=== PATIENT | male | born 1970 | race Caucasian/White ===

== ENCOUNTER → 2021-07-21 14:33 | Outpatient (REF) | payer OTHER, MEDICARE, SELFPAY | LOC: ANHLAB 14:33 | PROVIDERS: PCP Physician Assistant; Visit Provider Nurse Practitioner | DX: C44.01 Basal cell carcinoma of skin of lip (principal); D22.5 Melanocytic nevi of trunk | CPT/HCPCS: 88305 ==

== ENCOUNTER 2021-09-30 09:35 | Outpatient (CLI) | payer MEDICARE, SELFPAY ==
--- NOTE | 2021-09-30 10:03 | ECHO_ITS ---
Patient Info Name: Ge Isabel Age: 51 years : 1970 Gender: Male Ht: 73 in Wt: 205 lbs BSA: 2.20 m2 HR: 54 bpm BP: 87 / 64 mmHg Heart Rhythm: Sinus Rhythm Exam Date: 09/30/2021 10:22 AM Exam Location: [facility] Pulmonary Patient Status: Outpatient Admit Date: 09/30/2021 Staff Ordering Physician: Carroll Dunn PA-C Business Dean: Vadim Orosco RDCS, RT Attending Provider: Carroll Dunn PA-C Referring Physician: Mona CANO; Exam Type: CA echo doppler color flow Study Info Complete two-dimensional, color flow and Doppler transthoracic echocardiogram is performed. Summary 1. Technically difficult study with limited views. Regional wall motion assessment limited due to poor endomyocardial border definition. 2. Left ventricular systolic function is normal, estimated at 55-60%. 3. There is mildly increased left ventricular wall thickness. 4. Left ventricular septal wall motion is abnormal with septal motion related to bundle branch block. 5. The left ventricular diastolic function is grade I diastolic dysfunction. 6. There is no aortic valve stenosis. 7. There is trace mitral valve regurgitation. 8. Unable to estimate PA systolic pressure due to poor spectral resolution of tricuspid regurgitant jet velocity. Left Ventricle Technically difficult study with limited views. Regional wall motion assessment limited due to poor endomyocardial border definition. Left ventricular chamber dimension is normal. Left ventricular systolic function is normal, estimated at 55-60%. There is mildly increased left ventricular wall thickness. Left ventricular septal wall motion is abnormal with septal motion related to bundle branch block. The left ventricular diastolic function is grade I diastolic dysfunction. Right Ventricle Right ventricular chamber dimension is normal. Right ventricular systolic function is normal. Left Atria Left atrial chamber dimension is normal. Right Atria Right atrial chamber dimension is normal. Aortic Valve The aortic valve is not well visualized. There is no aortic valve stenosis. There is no aortic valve regurgitation. Pulmonic Valve The pulmonic valve is not well visualized. Mitral Valve The mitral valve has normal leaflets. There is trace mitral valve regurgitation. Tricuspid Valve The tricuspid valve leaflets are not well visualized. Unable to estimate PA systolic pressure due to poor spectral resolution of tricuspid regurgitant jet velocity. Pericardium/Pleural The pericardium appears epicardial fat pad. There is trivial pericardial effusion. Inferior Vena Cava Normal inferior vena cava with <50% collapse upon inspiration consistent with elevated right atrial pressure, 10 mmHg. Aorta The aortic root size at the sinus of Valsalva is normal. Left Ventricular Outflow Tract Name Value Normal LVOT 2D LVOT Diameter 2.0 cm LVOT Doppler LVOT Peak Gradient 1 mmHg LVOT Mean Gradient 1 mmHg LVOT VTI 13 cm LVOT VTI/AV VTI Ratio 0.[address]
== END 2021-09-30 09:36 | disposition home or self-care (01) ==
PROVIDERS: PCP Family Medicine; Visit Provider Physician Assistant
DX: I95.9 Hypotension, unspecified (principal); Z79.899 Other long term (current) drug therapy; R93.1 Abnormal findings on diagnostic imaging of heart and coronary circulation; I44.7 Left bundle-branch block, unspecified
CPT/HCPCS: 93306

== ENCOUNTER 2021-11-10 01:18 | Day surgery (SDC) | payer MEDICARE, SELFPAY ==
[2021-11-02 11:20] VITALS: BMI 26.7
[2021-11-10 11:33] VITALS: BP 91/54; PULSE 82; RESP 16; TEMP 36.6; O2SAT 99
--- NOTE | 2021-11-10 11:42 | WPDGICN ---
Assessment and Plan Assessment and plan (1) Encounter for screening colonoscopy: Code(s): Z12.11 - Encounter for screening for malignant neoplasm of colon Status: Acute Assessment and Plan: Colonoscopy to be performed today. Appears to be at average risk for colon polyps. (2) Spinal cord injury: Status: Acute (3) Quadriplegia: Code(s): G82.50 - Quadriplegia, unspecified Status: Acute GI Consult Note Consult date/time: 11/10/21 11:42 HPI: Ge Isabel is a 51 year old male Presents for neoplasia screening. Patient's current weight appetite and bowel movements are normal. He denies abdominal pain. He has a history of quadriplegia for at least 30 years. Has an established bowel regime that keeps him regular. Recently has noticed a small bright bright red blood per rectum with hard bowel movements. Patient presents today for screening colonoscopy. Family history is significant grandmother had colon cancer. There are no first-degree relatives with bowel disease that he is aware of. Review of Systems Review of Systems: All systems reviewed & are unremarkable except as noted in HPI and below PMFSH Family History Family History Mother Hypertension Father Hypertension Cerebrovascular accident, Onset Age: 57 Grandparent Carcinoma of colon, Onset Age: 80 Social History Social History Smoking status: Never smoker Alcohol intake: current Substance use: never Substance use type: does not use Living arrangements: with family Additional living arrangements comments: EXTERNAL CATHETER WITH LEG BAG Spiritual care concerns: No Meds Home Medications and Allergies Home Medications Medication Instructions Recorded Confirmed Type diazepam 5 mg tablet 5 mg PO BID #180 tablet 03/26/21 11/02/21 Rx nitrofurantoin 100 mg PO DAILY PRN #30 cap 03/26/21 11/02/21 Rx monohydrate/macrocrystals 100 mg capsule baclofen 20 mg tablet 20 mg PO QID #360 tablet 08/04/21 11/02/21 Rx tamsulosin 0.4 mg capsule 0.4 mg PO DAILY #90 cap 08/04/21 11/02/21 Rx ascorbic acid (vitamin C) 500 mg PO DAILY 11/02/21 11/02/21 History docusate sodium [Dulcolax Stool 100 mg PO QID 11/02/21 11/02/21 History Softener (dss)] Allergies Allergy/AdvReac Type Severity Reaction Status Date / Time latex Allergy Intermediate penis Verified 11/10/21 11:32 Vital Signs Vital Signs - 24 hr 11/10/21 11:33 Temperature 97.8 F Pulse Rate 82 Respiratory Rate 16 Blood Pressure 91/54 L Pulse Oximetry 99 Exam Narrative: Physical exam reveals patient to be alert. Vital signs stable. HEENT exam is unremarkable. Patient is anicteric. Lungs are clear to auscultation and percussion. Heart is without murmur or extra sounds. Abdominal exam bowel sounds present soft nontender with no organomegaly. Digital external rectal exam is normal. Extremities reveal E has paralysis below the nipples.
[2021-11-10] MEDS: LACTATED RINGERS 1,000 ML 150 ML IV CONT (11:43)
--- NOTE | 2021-11-10 12:18 | WPDANESEPPF ---
Anes - Initial Pre Proc Eval Procedure: Operation Date: 11/10/21 12:30 Proposed Procedures p Screening Colonoscopy - Ariel Cotton MD Date/Time: 11/10/21 12:18 Surgeon: Ariel Cotton MD Pre Op Diagnosis: neoplasm screening Patient Data Age: 51 Gender: M Height: 1.85 m Weight: 92 kg Last Vital Signs Temp 97.8 F 11/10/21 11:33 Pulse 82 11/10/21 11:33 Resp 16 11/10/21 11:33 BP 91/54 L 11/10/21 11:33 Pulse Ox 99 11/10/21 11:33 Allergies Allergy/AdvReac Type Severity Reaction Status Date / Time latex Allergy Intermediate penis Verified 11/10/21 11:32 Home Medications Medication Instructions Recorded Confirmed Type diazepam 5 mg tablet 5 mg PO BID #180 tablet 03/26/21 11/02/21 Rx nitrofurantoin 100 mg PO DAILY PRN #30 cap 03/26/21 11/02/21 Rx monohydrate/macrocrystals 100 mg capsule baclofen 20 mg tablet 20 mg PO QID #360 tablet 08/04/21 11/02/21 Rx tamsulosin 0.4 mg capsule 0.4 mg PO DAILY #90 cap 08/04/21 11/02/21 Rx ascorbic acid (vitamin C) 500 mg PO DAILY 11/02/21 11/02/21 History docusate sodium [Dulcolax Stool 100 mg PO QID 11/02/21 11/02/21 History Softener (dss)] Patient hx anesthesia problems: none Family hx anesthesia problems: none Results Review: All pre-operative results and documents have been reviewed as part of the pre-operative evaluation. [facility] Past Medical History Medical History (Updated 11/10/21 @ 12:18 by Ranulfo Plata MD) Hypotension Quadriplegia Spinal cord injury Family History Family History Mother Hypertension Father Hypertension Cerebrovascular accident, Onset Age: 57 Grandparent Carcinoma of colon, Onset Age: 80 Social History Social History Smoking status: Never smoker Alcohol intake: current Substance use: never Substance use type: does not use Living arrangements: with family Additional living arrangements comments: EXTERNAL CATHETER WITH LEG BAG Spiritual care concerns: No Anes - Eval Final PreProcedure Day of Procedure 11/10/21 12:18 Patient weight: normal Heart: regular rate and rhythm Lungs: clear to auscultation Airway: Mallampati scale class II Neurological: alert and oriented Last oral intake: >/= 8 hours ASA classification: III Emergent: no Anesthetic plan: proceed Anesthesia type and monitoring: general GIVS and standard monitoring Results Review: All pre-operative results and documents have been reviewed as part of the pre-operative evaluation. Informed Consent: The patient's anesthetic plan and its attendant risks and benefits were discussed with the patient/family/POA. Questions were solicited and answers provided to the satisfaction of the patient/family/POA.
[2021-11-10 12:58] VITALS: BP 107/67; PULSE 73; RESP 32; O2SAT 96
[2021-11-10 13:08] VITALS: BP 101/72; PULSE 62; RESP 21; O2SAT 98
[2021-11-10 13:18] VITALS: BP 108/75; PULSE 63; RESP 20; O2SAT 97
== END 2021-11-10 13:26 | disposition home or self-care (01) ==
PROVIDERS: PCP Family Medicine; Visit Provider Internal Medicine Gastroenterology
PROC: 0DJD8ZZ Inspection of Lower Intestinal Tract, Via Natural or Artificial Opening Endoscopic (ICD-10-PCS; CPT 45378; principal; 2021-11-10 12:30)
DX: Z12.11 Encounter for screening for malignant neoplasm of colon (principal); D12.3 Benign neoplasm of transverse colon; K62.1 Rectal polyp; G82.50 Quadriplegia, unspecified; T14.8XXS Other injury of unspecified body region, sequela; K64.8 Other hemorrhoids
CPT/HCPCS: 45385; 88305; J2704; J7120

== ENCOUNTER 2022-08-19 14:54 | Outpatient (NON) | payer BC, MEDICARE, SELFPAY | END 2022-08-19 14:55 | disposition home or self-care (01) | PROVIDERS: PCP Family Medicine; Visit Provider Nurse Practitioner | DX: L73.8 Other specified follicular disorders (principal); L90.5 Scar conditions and fibrosis of skin | CPT/HCPCS: 88305 ==

== ENCOUNTER 2023-07-13 11:18 | Outpatient (CLI) | payer BC, MEDICARE, SELFPAY ==
[2023-07-13 14:19] LABS: Basophils Percent Auto 0.4 % (0.2-1.2); Eosinophils Absolute Auto 0.2 K/mm3 (0-0.3); Eosinophils Percent Auto 2.2 % (0-4.4); Hematocrit 42.1 % (42.0-52.0); Hemoglobin 13.4 g/dL (14.0-18.0); Immature Granulocyte Absolute 0.04 K/mm3 (0.00-0.031); Immature Granulocyte Percent A 0.5 % (0-0.5); Lymphocytes Absolute Auto 1.38 K/mm3 (0.9-3.2); Lymphocytes Percent Auto 17.6 % (18.3-44.2); Mean Corpuscular HGB Conc 31.8 g/dl (32-36); Mean Corpuscular Volume 91.1 fl (80-100); Mean Platelet Volume 9.8 fl (7.4-10.4); Monocytes Absolute Auto 0.5 K/mm3 (0.1-0.6); Monocytes Percent Auto 5.9 % (2.6-8.5); Neutrophils Absolute Auto 5.8 K/mm3 (1.3-6.7); Neutrophils Percent Auto 73.4 % (45.5-73.1); Platelet Count Result 282 k/mm3 (150-375); Red Blood Count 4.62 M/mm3 (4.6-6.20); Red Cell Distribution Width 13.4 % (11.5-14.5); White Blood Count 7.8 K/mm3 (4.5-10.0)
== END 2023-07-13 11:19 | disposition home or self-care (01) ==
PROVIDERS: PCP Family Medicine; Visit Provider Family Medicine
DX: Z00.00 Encounter for general adult medical examination without abnormal findings (principal); Z99.3 Dependence on wheelchair
CPT/HCPCS: 36415; 85025

== ENCOUNTER 2023-10-27 06:42 | Inpatient (IN) | payer BC, MEDICARE, SELFPAY ==
[2023-10-27] VITALS (19 sets, daily range): BP systolic 74–161; BP diastolic 45–146; PULSE 75–127; RESP 12–24; TEMP 36.8–39; O2SAT 18–100; BMI 25.6
--- NOTE | ~2023-10-27 | XR_ITS ---
Supine and upright views of the abdomen Clinical history: Left ureteral stone Findings: Bowel gas pattern is nonspecific. No evidence for obstruction or free air. Or left ureteral stent in place. Left lower pole renal stones measure up to 12 mm. No definite ureteral stones seen o n this exam. Osseous structures are intact. Impression: Left ureteral stent in place with left lower pole renal stones. No definite ureteral stone evident. Reviewed, dictated and finalized at [facility]. Impression: Left ureteral stent in place with left lower pole renal stones. No definite ure teral stone evident.
--- NOTE | ~2023-10-27 | XR_ITS ---
EXAMINATION: XR retrograde pyelo w/stent LT DATE: 10/27/2023 15:47 INDICATION: Left internal ureteral stent placement TECHNIQUE: Fluoroscopic images from a left internal ureteral stent placement are submitted for review . 23 seconds of fluoroscopy time. 11 fluoroscopic images. FINDINGS: There is a left double-J internal ureteral stent projecting in expected position, with proximal [place] loop at the level of the renal pelvis and distal loop in the pelvis within the bladder lumen. IMPRESSION: 1. Left internal ureteral stent placement. Please refer to real-time procedural findings for detail s. Reviewed, dictated and finalized at location A. IMPRESSION: 1. Left internal ureteral stent placement. Please refer to real-time procedur al findings for details.
--- NOTE | ~2023-10-27 | US_ITS ---
EXAMINATION: US venous doppler [facility] DATE: 10/30/2023 17:22 INDICATION: edema . TECHNIQUE: Grayscale images without and with compression and Doppler images of the bilateral lower ex tremity veins were obtained. COMPARISON: None FINDINGS: The right common femoral vein, profunda (deep) femoral vein, femoral vein, popliteal vein, peroneal v ein, posterior tibial veins, and greater saphenous vein are patent. Noncompressible peroneal veins with partial flow. The left common femoral vein, profunda (deep) femo ral vein, femoral vein, popliteal vein, posterior tibial veins, and greater saphenous vein are patent . IMPRESSION: Acute-appearing thrombus in the left peroneal veins. Otherwise patent bilateral lower extremity veins. Reviewed, dictated and finalized at location [facility].
--- NOTE | ~2023-10-27 | CT_ITS ---
EXAMINATION: CT abdomen pelvis w con DATE: 10/27/2023 12:54 INDICATION: Nonspecific abdominal pain, nausea and vomiting TECHNIQUE: Computed tomography (CT) of the abdomen and pelvis was performed with 100 mL Omnipaque-350 intravenous contrast. Automated exposure control and iterative reconstruction technique were employe d. The dose-length product was 436.04 mGy-cm. COMPARISON: None FINDINGS: Lung bases are clear. Heart size is normal. No pericardial or pleural effusion. Liver, gallbladder, s pleen, pancreas, bilateral adrenal glands and right kidney are normal. 7 x 6 x 4 mm obstructing stone at the proximal most left ureter with mild left hydronephrosis. There are 5 additional stones at the lower pole of the left kidney the largest measuring 1.9 x 1.3 x 1.0 cm. There is also a delayed left nephrogram. Bowels including the retrocecal appendix are normal. There is bladder wall thickening al salima the posterior bladder but with smooth mucosal contour. No free intraperitoneal gas or fluid. No p athologically enlarged abdominal or pelvic lymphadenopathy. Mild lumbar dextrocurvature with mild spo ndylosis. Bone island at the left femoral neck. IMPRESSION: 1. Left nephrolithiasis with obstructing 7 mm stone in the proximal left ureter with secondary mild l eft hydronephrosis and delayed left nephrogram. 2. Nonspecific mild wall thickening along the posterior bladder which could be due to incomplete dist ention with differential including chronic outlet obstruction, cystitis either acute or chronic or le ss likely malignancy. Correlate with clinical history and urinalysis. Reviewed, dictated and finalized at location L. IMPRESSION: 1. Left nephrolithiasis with obstructing 7 mm stone in the proximal left ureter with secondary mild left hydronephrosis and delayed left nephrogram. 2. Nonspecific mild wall thickening along the posterior bladder which could be due to incomplete distention with differential including chronic outlet obstruc tion, cystitis either acute or chronic or less likely malignancy. Correlate wit h clinical history and urinalysis.
--- NOTE | ~2023-10-27 | US_ITS ---
EXAMINATION: US right upper quadrant DATE: 10/27/2023 11:27 INDICATION: Abdominal pain. TECHNIQUE: Multiple grayscale and Doppler ultrasound images of the abdomen were obtained. COMPARISON: CT abdomen and pelvis 07/07/2012 FINDINGS: The visualized portions of the head, body, and tail the pancreas are normal. The liver is n ormal without focal lesion. There is antegrade flow in main portal vein. The gallbladder is normal in size and contains a gallstone. No gallbladder wall thickening or sonographic Orosco sign. The common duct is normal and measures 5 mm. IMPRESSION: 1. Cholelithiasis. No evidence of acute cholecystitis. Reviewed, dictated and finalized at location A.
--- NOTE | 2023-10-27 07:05 | PC.NURSE ---
Patient states his normal blood pressure runs low around 90s/60s.
[2023-10-27 07:08] LABS: Hematocrit 40.5 % (42.0-52.0); Hemoglobin 13.4 g/dL (14.0-18.0); Mean Corpuscular HGB Conc 33.1 g/dl (32-36); Mean Corpuscular Hemoglobin 29.6 pg (26-34); Mean Corpuscular Volume 89.6 fl (80-100); Mean Platelet Volume 9.6 fl (7.4-10.4); Platelet Count Result 242 k/mm3 (150-375); Red Blood Count 4.52 M/mm3 (4.6-6.20); Red Cell Distribution Width 13.6 % (11.5-14.5); White Blood Count 9.5 K/mm3 (4.5-10.0)
[2023-10-27] MEDS: SODIUM CHLORIDE 0.9% IV 1,000 ML 999 ML IV CONT ×3 (07:09→14:22)
[2023-10-27 07:17] LABS: Alanine Aminotransferase 63 U/L (6-50); Albumin Level 3.7 g/dL (3.5-5.1); Alkaline Phosphatase 107 U/L (38-126); Anion Gap 7 mmol/L (8-16); Aspartate Amino Transferase 96 U/L (17-59); Bilirubin,Total 0.7 mg/dL (0.2-1.3); Blood Urea Nitrogen 17 mg/dL (9-20); Calcium 8.9 mg/dL (8.4-10.2); Carbon Dioxide 23 mmol/L (22-30); Chloride 108 mmol/L (98-107); Estimated CRCL calculation 104 ml/min; Estimated Glomerular Filt Rate > 60; Glucose 124 mg/dL (65-110); Lipase 97 U/L (23-300); Potassium 3.6 mmol/L (3.4-5.0); Sodium 138 mmol/L (137-145)
[2023-10-27 08:15] LABS: Band Neutrophils Percent 20 % (0-6); Neutrophils Absolute Manual 8.93 K/mm3 (1.3-6.7); Neutrophils Percent Manual 74 % (46-73); Platelet Estimate Adequate (Adequate); Total Cells Counted 100
[2023-10-27 08:16] LABS: Lymphocytes Absolute Manual 0.38 K/mm3 (1.1-4.5); Lymphocytes Percent Manual 4 % (18-44); Monocytes Absolute Manual 0.09 K/mm3 (0.1-0.90); Monocytes Percent Manual 1 % (3-9); Promyelocytes Percent 1 %; Schistocytes None Seen
[2023-10-27 09:11] LABS: Influenza A QL RT-PCR Negative (Negative); Influenza B QL RT-PCR Negative (Negative); RSV RNA, RT-PCR Negative (Negative); SARS-CoV-2 RNA PCR Negative (Negative)
[2023-10-27 09:24] LABS: Appearance Urine Clear (Clear); Bacteria Urine None Seen /hpf; Bilirubin Urine Negative (Negative); Blood Urine Negative (Negative); Color Urine Yellow (Yellow); Glucose Urine UA Negative (Negative); Hyaline Casts Urine Present /lpf; Ketones Urine 1+ mg/dL (Negative); Leukocyte Esterase Ur 1+ LEU/UL (Negative); Mucus Urine Present /lpf; Nitrate Urine Negative (Negative); Protein Urine Negative (Negative); RBC Urine 0-2 /hpf (0-2); Spermatozoa Urine Present; Squamous Epithelial Cell Urine None Seen /hpf (Few); Urobilinogen Urine 0.2 mg/dL (<2.0)
[2023-10-27 09:30] LABS: Add Urine Microscopic? YES
--- NOTE | 2023-10-27 12:21 | ED.NAVMDI ---
HPI - Nausea/Vomiting/Diarrhea General Chief complaint: Nausea/Vomiting/Diarrhea Stated complaint: fever, abd pain/spasm, syncopal episode this am Time Seen by Provider: 10/27/23 06:59 History of Present Illness HPI Narrative: Patient is a 3-year-old male with history of partial quadriplegia we presents the ER with abdominal pain and fever. Reports he woke up this morning and was have spasming abdominal pain. Unsure of the location due to his neurologic deficits. He was also found have a temperature of 100.2? F. He took Tylenol and came here. He has no pain at this time. Looks well. His blood pressure is low. Denies runny nose or sore throat or productive cough. He has had no diarrhea. He is due to start his bowel regimen today which includes taking a suppository. No change in urination. Related Data Home Medications Medication Instructions Recorded Confirmed ascorbic acid (vitamin C) 500 mg 500 mg PO DAILY 11/02/21 07/13/23 tablet docusate sodium 100 mg capsule 100 mg PO QID 11/02/21 07/13/23 (Dulcolax Stool Softener (docusate)) aspirin 325 mg tablet 325 mg PO DAILY 07/13/23 07/13/23 Allergies Allergy/AdvReac Type Severity Reaction Status Date / Time latex Allergy Intermediate penis Verified 07/13/23 10:16 Review of Systems Review of Systems: All systems reviewed & are unremarkable except as noted in HPI and below Constitutional: Constitutional: Reports chills, Reports fatigue and Reports fever(s) ENT: Reports system reviewed and no additional complaints, except as documented Cardiovascular: Cardiovascular: Reports no additional cardiovascular complaints Respiratory: Respiratory: Reports no additional respiratory complaints Gastrointestinal: Gastrointestinal: Reports abdominal pain, Denies constipation, Denies diarrhea, Denies nausea and Denies vomiting Genitourinary: Genitourinary: Reports no additional male genitourinary complaints [facility] Past Medical History Medical History Actinic keratosis Hx of basal cell carcinoma Hypotension Quadriplegia Spinal cord injury Surgical History Surgical History No pertinent past surgical history Family History Family History Mother Hypertension Father Hypertension Cerebrovascular accident, Onset Age: 57 Grandparent Carcinoma of colon, Onset Age: 80 Social History Social History Smoking status: Never smoker Alcohol intake: never Alcohol use details: rarely Substance use: never Substance use type: does not use Do You Feel Safe in your Home?: Yes Lack of Transportation: No Lack of Food: Never True Current Housing: I Have Housing Concerned About Future Housing: No Difficulty Paying Gas/Electric Bills: No Difficulty Paying for Meds: No Currently Unemployed: No Education: Master's Degree or Higher Difficulty w/ Childcare or Family Care: No Living arrangements: with family Additional living arrangements comments: EXTERNAL CATHETER WITH LEG BAG Spiritual care concerns: No Exam Narrative: GENERAL: Well-appearing, well-nourished, and in no acute distress. HEAD: Normocephalic, atraumatic. EYES: PERRL and EOMI. ENT: Mucous membranes moist. NECK: Supple. CHEST: Clear to auscultation. No respiratory distress. HEART: Regular rate and rhythm. Normal peripheral pulses. ABDOMEN: Soft, nontender, nondistended. EXTREMITIES: Patient does have movement of the arms and legs but he is significantly weak. There is significant atrophy noted. SKIN: Warm, dry, no rash. NEURO: Alert and oriented x3. PSYCH: Normal mood and affect. Course Course Emergency Course: Liver enzymes and ultrasound that shows cholelithiasis. Discussed with General surgery. Recommends admission for observation hos
[2023-10-27] MEDS: PIPERACILLN/TAZ 3.375GM/NS50ML 3.375 GM/50 ML BAG IVPB ×3 (12:35→23:59)
[2023-10-27] MEDS: fentaNYL CITRATE INJ (*CRX) 100 MCG/2 ML VIAL 50 MCG IV PUSH (13:59)
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
--- NOTE | 2023-10-27 14:59 | WPDANESEPPF ---
Anes - Initial Pre Proc Eval Procedure: Operation Date: 10/27/23 15:45 Proposed Procedures p Cystoscopy, Left Retrograde Pyelogram, Left Ureteral Stent Placement - Rick Medrano MD Date/Time: 10/27/23 14:59 Surgeon: Rick Medrano MD Pre Op Diagnosis: fever, abd pain/spasm, syncopal episode this am Patient Data Age: 53 Gender: M Height: 1.85 m Weight: 90.91 kg Last Vital Signs Temp 37.7 C H 10/27/23 13:58 Pulse 113 H 10/27/23 14:15 Resp 20 10/27/23 14:15 BP 91/50 L 10/27/23 14:15 Pulse Ox 95 10/27/23 14:15 O2 Del Method Room Air 10/27/23 06:53 Allergies Allergy/AdvReac Type Severity Reaction Status Date / Time latex Allergy Intermediate penis Verified 07/13/23 10:16 Home Medications Medication Instructions Recorded Confirmed Type ascorbic acid (vitamin C) 500 mg 500 mg PO DAILY 11/02/21 07/13/23 History tablet docusate sodium 100 mg capsule 100 mg PO QID 11/02/21 07/13/23 History (Dulcolax Stool Softener (docusate)) nitrofurantoin 100 mg PO DAILY PRN UTI 06/01/23 07/13/23 Rx monohydrate/macrocrystals 100 mg prophylaxis #30 caps capsule (Macrobid) aspirin 325 mg tablet 325 mg PO DAILY 07/13/23 07/13/23 History baclofen 20 mg tablet 20 mg PO QID #360 tabs 10/18/23 Rx diazepam 5 mg tablet 5 mg PO BID #180 tabs 10/18/23 Rx tamsulosin 0.4 mg capsule 0.4 mg PO DAILY #90 caps 10/18/23 Rx Laboratory Tests 10/27/23 10/27/23 10/27/23 07:01 08:28 08:37 WBC 9.5 K/mm3 (4.5-10.0) RBC 4.52 L M/mm3 (4.6-6.20) Hgb 13.4 L g/dL (14.0-18.0) Hct 40.5 L % (42.0-52.0) MCV 89.6 fl (80-100) MCH 29.6 pg (26-34) MCHC 33.1 g/dl (32-36) RDW 13.6 % (11.5-14.5) Plt Count 242 k/mm3 (150-375) MPV 9.6 fl (7.4-10.4) Immature Gran % (Auto) Not Reportable Neut % (Auto) Not Reportable Lymph % (Auto) Not Reportable [place] % (Auto) Not Reportable Eos % (Auto) Not Reportable Baso % (Auto) Not Reportable Lymph # (Auto) Not Reportable [place] # (Auto) Not Reportable Eos # (Auto) Not Reportable Baso # (Auto) Not Reportable Abs Immat Gran (auto) Not Reportable Absolute Neuts (auto) Not Reportable Absolute Nucleated RBC Not Reportable Total Counted 100 Neutrophils % (Manual) 74 H % (46-73) Band Neutrophils % 20 H % (0-6) Lymphocytes % (Manual) 4 L % (18-44) Monocytes % (Manual) 1 L % (3-9) Promyelocytes % (Man) 1 % Nucleated RBC % Not Reportable Abs Neuts (Manual) 8.93 H K/mm3 (1.3-6.7) Abs Lymphs (Manual) 0.38 L K/mm3 (1.1-4.5) Abs Monocytes (Manual) 0.09 L K/mm3 (0.1-0.90) Platelet Estimate Adequate (Adequate) Schistocytes None seen Sodium 138 mmol/L (137-145) Potassium 3.6 mmol/L (3.4-5.0) Chloride 108 H mmol/L (98-107) Carbon Dioxide 23 mmol/L (22-30) Anion Gap 7 L mmol/L (8-16) BUN 17 mg/dL (9-20) Creatinine 0.80 mg/dL (0.7-1.3) Estim Creat Clear Calc 104 ml/min Estimated GFR > 60 (59 - ) Glucose 124 H mg/dL (65-110) Calcium 8.9 mg/dL (8.4-10.2) Total Bilirubin 0.7 mg/dL (0.2-1.3) AST 96 H U/L (17-59) ALT 63 H U/L (6-50) Alkaline Phosphatase 107 U/L (38-126) Total Protein 7.0 g/dL (6.3-8.2) Albumin 3.7 g/dL (3.5-5.1) Lipase 97 U/L (23-300) Urine Color Yellow (Yellow) Urine Appearance Clear (Clear) Urine pH 6.0 (5.0-9.0) Ur Specific [place] 1.010 (1.001-1.035) Urine Protein Negative mg/dL (Negative)
[2023-10-27] MEDS: LACTATED RINGERS 1,000 ML 30 ML IV CONT ×2 (15:00→16:41)
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
--- NOTE | 2023-10-27 15:11 | WPDHPUPDATE1 ---
History and Physical Update Update Date/Time: 10/27/23 15:11 History and Physical has been reviewed, including an updated exam of the patient. There are NO changes in the patient's condition. Risks, benefits, and alternatives have been discussed and questions answered. Patient agrees to proceed with procedure.
[2023-10-27] MEDS: LIDOCAINE HCL 2% GEL UROJET 10 ML PKG MUCOUS MEM (15:32)
--- NOTE | 2023-10-27 15:48 | P.OP_ITS ---
Procedure Note - Detailed Date of Procedure 10/27/23 Pre-op Diagnosis 1. Obstructing left proximal ureteral stone with obstructive pyelonephritis 2. Left renal calculi Post-op Diagnosis Other Procedure Performed Cystoscopy, left retrograde pyelography, left ureteral stent placement Surgeon Rick Medrano MD Anesthesia MAC Description of Procedure Patient brought the op suite was prepped and draped in routine sterile fashion while in dorsal lithotomy position. 2% xylocaine jelly was introduced intraur ethrally and systemic sedation is administered per the anesthesia department. Cystoscopy is undertaken with a 19 F rigid cystoscope. There was no urethral strictures and minimal prostatic hyperplasia. Bladder is without mucosal hyperemia and there is no intravesical foreign body or neoplasm. A angiographic catheter was used to obtain left retrograde pyelogram. I can see the filling defect from his left proximal ureteral stone. There was no other clearly identifiable pathology on retrograde pyelography. A 4.8 F variable length stent is positioned with the upper coil in the collecting system and distal coil in the bladder. Scopes and wires removed I placed a 16 F urethral catheter to drainage. Urine Output 700 Complications No immediate complications Condition Stable Disposition PACU
[2023-10-27 17:59] LABS: Lactic Acid Reflex 3.8 mmol/L (0.7-2.0)
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
[2023-10-27 19:32] LABS: Lactic Acid Reflex 4.4 mmol/L (0.7-2.0)
[2023-10-27 20:48] LABS: Reflex Lactic Acid Yes or No Add Lactic
[2023-10-27] MEDS: ACETAMINOPHEN 500 MG TABLET PO (20:56)
[2023-10-27] MEDS: LACTATED RINGERS 1,000 ML 100 ML IV CONT (20:57)
[2023-10-27] MEDS: BACLOFEN 10 MG TABLET 20 MG PO (22:38)
[2023-10-27] MEDS: DOCUSATE SODIUM 100 MG CAPSULE PO (22:38)
[2023-10-27] MEDS: diazePAM (*CRX) 5 MG TABLET PO (22:38)
[2023-10-27 22:49] LABS: Lactic Acid 5.3 mmol/L (0.7-2.0)
[2023-10-28] VITALS (12 sets, daily range): BP systolic 78–114; BP diastolic 47–93; PULSE 70–117; RESP 12–22; TEMP 36.6–37.6; O2SAT 97–100
[2023-10-28] MEDS: PIPERACILLN/TAZ 3.375GM/NS50ML 3.375 GM/50 ML BAG IVPB ×3 (05:30→17:14)
[2023-10-28 06:57] LABS: Hematocrit 35.3 % (42.0-52.0); Hemoglobin 11.4 g/dL (14.0-18.0); Mean Corpuscular HGB Conc 32.3 g/dl (32-36); Mean Corpuscular Hemoglobin 29.4 pg (26-34); Mean Platelet Volume 10.4 fl (7.4-10.4); Platelet Count Result 164 k/mm3 (150-375); Red Blood Count 3.88 M/mm3 (4.6-6.20); Red Cell Distribution Width 14.2 % (11.5-14.5); White Blood Count 24.9 K/mm3 (4.5-10.0)
[2023-10-28 07:15] LABS: Lactic Acid Reflex 1.9 mmol/L (0.7-2.0)
[2023-10-28 07:19] LABS: Alanine Aminotransferase 51 U/L (6-50); Alkaline Phosphatase 89 U/L (38-126); Anion Gap 4 mmol/L (8-16); Aspartate Amino Transferase 61 U/L (17-59); Bilirubin,Total 1.2 mg/dL (0.2-1.3); Blood Urea Nitrogen 17 mg/dL (9-20); Carbon Dioxide 22 mmol/L (22-30); Chloride 110 mmol/L (98-107); Estimated CRCL calculation 104 ml/min; Estimated Glomerular Filt Rate > 60; Glucose 103 mg/dL (65-110); Potassium 3.7 mmol/L (3.4-5.0); Sodium 136 mmol/L (137-145)
[2023-10-28 07:38] LABS: Band Neutrophils Percent 24 % (0-6); Lymphocytes Absolute Manual 0.74 K/mm3 (1.1-4.5); Metamyelocytes Percent 10 %; Monocytes Absolute Manual 0.49 K/mm3 (0.1-0.90); Monocytes Percent Manual 2 % (3-9); Neutrophils Absolute Manual 20.91 K/mm3 (1.3-6.7); Neutrophils Percent Manual 60 % (46-73); Platelet Estimate Adequate (Adequate); Schistocytes None Seen; Total Cells Counted 100; Toxic Granulation Present
[2023-10-28 07:48] LABS: Hemoglobin A1C 5.2 % (<5.7)
--- NOTE | 2023-10-28 07:56 | WPDUROPN2 ---
Progress Note: A&P Assessment and Plan (1) Hydronephrosis with ureteral calculus: Code(s): N13.2 - Hydronephrosis with renal and ureteral calculous obstruction Status: Acute Plan Continue broad spectrum abx. Definitive stone mgmt. in 203 weeks. Subjective Subjective Date/Time Seen: 10/28/23 07:56 Interval history: Tolerating ureteral stent - less spasticity. Exam GI: Inspection: normal to inspection GI Palp: No abdominal tenderness and Yes Soft to palpation Urinary Catheter: Urinary Catheter: patent and draining and urine clear Objective Data Vital Signs Vital Signs: Vital Signs - 24 hr 10/27/23 08:30 10/27/23 11:24 10/27/23 12:25 Temperature 99.2 F Pulse Rate 75 78 112 H Respiratory Rate 15 14 24 H Blood Pressure 117/75 125/84 109/92 H Pulse Oximetry 99 96 97 Oxygen Delivery Oxygen Flow Rate 10/27/23 13:58 10/27/23 14:15 10/27/23 15:08 Temperature 99.8 F H 102.2 F H Pulse Rate 127 H 113 H 120 H Respiratory Rate 16 20 Blood Pressure 134/111 H 91/50 L 123/105 H Pulse Oximetry 97 95 95 Oxygen Delivery Oxygen Flow Rate 10/27/23 15:43 10/27/23 15:50 10/27/23 16:00 Temperature Pulse Rate 110 H 102 H 100 Respiratory Rate 12 18 16 Blood Pressure 106/85 151/96 H Pulse Oximetry 99 95 96 Oxygen Delivery Simple Face Mask Room Air Room Air Oxygen Flow Rate 8 10/27/23 16:15 10/27/23 16:30 10/27/23 16:45 Temperature Pulse Rate 100 106 H 108 H Respiratory Rate 14 16 16 Blood Pressure 118/90 95/51 L 93/56 L Pulse Oximetry 100 97 96 Oxygen Delivery Room Air Room Air Room Air Oxygen Flow Rate 10/27/23 17:00 10/27/23 18:00 10/27/23 19:48 Temperature Pulse Rate 110 H 107 H Respiratory Rate 16 Blood Pressure 90/54 L Pulse Oximetry 98 Oxygen Delivery Room Air Room Air Oxygen Flow Rate 10/27/23 20:00 10/27/23 20:00 10/28/23 00:00 Temperature 99.9 F H Pulse Rate 113 H 113 H Respiratory Rate 20 Blood Pressure 161/146 H Pulse Oximetry 98 Oxygen Delivery Room Air Oxygen Flow Rate 10/28/23 00:00 10/28/23 00:00 10/28/23 04:00 Temperature 99 F Pulse Rate 103 H 116 H Respiratory Rate 15 Blood Pressure 78/53 L Pulse Oximetry 98 Oxygen Delivery Room Air Oxygen Flow Rate 10/28/23 04:00 10/28/23 04:00 Temperature 99 F Pulse Rate 96 117 H Respiratory Rate 22 H Blood Pressure 90/53 L Pulse Oximetry 97 Oxygen Delivery Oxygen Flow Rate Intake/Output Intake/Output: Intake & Output 10/25/23 10/26/23 10/27/23 10/28/23 23:59 23:59 23:59 23:59 Intake Total 2500 900 Output Total 1700 875 Balance 800 25 Meds/Results Medications: Active Medications Generic Name Dose Route Start Last Admin Trade Name Freq PRN Reason Stop Dose Admin Acetaminophen 500 mg 10/27/23 18:54 10/27/23 20:56 Acetaminophen 500 Mg Tablet PO 500 mg Q4H PRN Administration Mild Pain (1-3) or Fever Hydrocodone Bitart/Acetaminophen 1 tab 10/27/23 18:54 Hydrocodone/Acetaminophen (*Crx) 5-325 Mg Tablet PO Q4H PRN Pain Rated 4-6 Ascorbic Acid 500 mg 10/28/23 09:00 Ascorbic Acid 500 Mg Tablet PO DAILY [facility] Baclofen 20 mg 10/28/23 09:00 Baclofen 10 Mg Tablet PO QID [facility] Diazepam 5 mg 10/27/23 22:30 10/27/23 22:38 Diazepam (*Crx) 5 Mg Tablet PO 5 mg Q12HR [facility]TER Administration Docusate Sodium 100 mg 10/28/23 09:00 Docusate Sodium 100 Mg Capsule PO QID WALTER Fentanyl Citrate 25 mcg 10/27/23 16:15 Fentanyl Citrate Inj (*Crx) 100 Mcg/2 Ml Vial IV PUSH Q2M PRN Pain Piperacillin/Tazobactam/Dextrose 3.375 gm in 50 mls @ 100 mls/hr 10/27/23 18:00 10/28/23 06:19 Zosyn 3.375 Gm/Ns 50 Ml IVPB Infused Q6H WALTER Infusion Lactated Ringer's 1,000 mls @ 30 mls/hr 10/27/23 15:25 10/27/23 16:40 Lr - Lactated Ringers Iv IV CONT Infused .Q24H WALTER Infusion Lactated Ringer's 1,000 mls @ 30 mls/hr 10/27/23 16:1
[2023-10-28] MEDS: TAMSULOSIN HCL 0.4 MG CAPSULE PO (08:18)
[2023-10-28] MEDS: diazePAM (*CRX) 5 MG TABLET PO ×2 (08:18→21:38)
[2023-10-28] MEDS: BACLOFEN 10 MG TABLET 20 MG PO ×4 (08:18→21:37)
[2023-10-28] MEDS: ASCORBIC ACID 500 MG TABLET PO (08:18)
[2023-10-28] MEDS: DOCUSATE SODIUM 100 MG CAPSULE PO ×4 (08:19→21:38)
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
--- NOTE | 2023-10-28 18:08 | PC.NURSE ---
This patient, Ge Isabel, was transferred to [facility] on 10/28/23 at 1801. Personal belongings sent with patient. Report given to RN. Appropriate documentation sent with patient.
[2023-10-28] MEDS: ACETAMINOPHEN 500 MG TABLET PO (21:40)
[2023-10-28] MEDS: BISACODYL 10 MG SUPPOSITORY RECTAL (21:41)
[2023-10-29] MEDS: PIPERACILLN/TAZ 3.375GM/NS50ML 3.375 GM/50 ML BAG IVPB ×4 (00:15→17:20)
[2023-10-29 05:59] LABS: Hematocrit 35.2 % (42.0-52.0); Hemoglobin 11.6 g/dL (14.0-18.0); Mean Corpuscular Hemoglobin 29.6 pg (26-34); Mean Corpuscular Volume 89.8 fl (80-100); Mean Platelet Volume 10.5 fl (7.4-10.4); Platelet Count Result 120 k/mm3 (150-375); Red Blood Count 3.92 M/mm3 (4.6-6.20); Red Cell Distribution Width 14.3 % (11.5-14.5)
[2023-10-29 06:11] LABS: Alanine Aminotransferase 57 U/L (6-50); Albumin Level 2.9 g/dL (3.5-5.1); Alkaline Phosphatase 136 U/L (38-126); Anion Gap 1 mmol/L (8-16); Aspartate Amino Transferase 66 U/L (17-59); Bilirubin,Total 0.6 mg/dL (0.2-1.3); Blood Urea Nitrogen 14 mg/dL (9-20); Calcium 8.1 mg/dL (8.4-10.2); Carbon Dioxide 27 mmol/L (22-30); Chloride 115 mmol/L (98-107); Estimated CRCL calculation 135 ml/min; Estimated Glomerular Filt Rate > 60; Glucose 93 mg/dL (65-110); Magnesium 2.2 mg/dL (1.6-2.3); Phosphorus 2.3 mg/dL (2.5-4.5); Potassium 3.2 mmol/L (3.4-5.0); Sodium 143 mmol/L (137-145)
[2023-10-29 06:29] VITALS: BP 98/61; PULSE 74; RESP 18; TEMP 36.8; O2SAT 96
[2023-10-29 06:36] LABS: Band Neutrophils Percent 29 % (0-6); Lymphocytes Absolute Manual 1.26 K/mm3 (1.1-4.5); Monocytes Absolute Manual 1.05 K/mm3 (0.1-0.90); Monocytes Percent Manual 5 % (3-9); Neutrophils Absolute Manual 18.69 K/mm3 (1.3-6.7); Neutrophils Percent Manual 60 % (46-73); Total Cells Counted 100
[2023-10-29 06:37] LABS: Platelet Estimate Slightly Decreased (Adequate); Schistocytes None Seen; Toxic Granulation Present
[2023-10-29 08:36] VITALS: BP 117/81; PULSE 97; RESP 18; TEMP 36.8; O2SAT 98
[2023-10-29] MEDS: POTASSIUM/PHOSPHORUS/SODIUM 1.5 GM PACKET 1 PACKET PO (08:37)
[2023-10-29] MEDS: POTASSIUM CHLORIDE 20 MEQ ER TABLET PO (08:38)
[2023-10-29] MEDS: ASPIRIN 325 MG TABLET PO (08:38)
[2023-10-29] MEDS: diazePAM (*CRX) 5 MG TABLET PO ×2 (08:38→21:18)
[2023-10-29] MEDS: ASCORBIC ACID 500 MG TABLET PO (08:38)
[2023-10-29] MEDS: TAMSULOSIN HCL 0.4 MG CAPSULE PO (08:38)
[2023-10-29] MEDS: DOCUSATE SODIUM 100 MG CAPSULE PO ×4 (08:38→21:18)
[2023-10-29] MEDS: BACLOFEN 10 MG TABLET 20 MG PO ×4 (09:22→21:18)
[2023-10-29 14:35] VITALS: BP 110/68; PULSE 88; RESP 19; TEMP 36.7; O2SAT 98
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
[2023-10-29] MEDS: ACETAMINOPHEN 500 MG TABLET PO (18:08)
[2023-10-29 21:19] VITALS: BP 132/72; PULSE 75; RESP 18; TEMP 37.4; O2SAT 97
[2023-10-30] MEDS: PIPERACILLN/TAZ 3.375GM/NS50ML 3.375 GM/50 ML BAG IVPB ×2 (00:57→06:08)
[2023-10-30 06:29] LABS: Basophils Absolute Auto 0.1 K/mm3 (0.0-0.1); Basophils Percent Auto 0.7 % (0.2-1.2); Eosinophils Absolute Auto 0.3 K/mm3 (0-0.3); Eosinophils Percent Auto 1.6 % (0-4.4); Hematocrit 35.2 % (42.0-52.0); Hemoglobin 11.5 g/dL (14.0-18.0); Immature Granulocyte Absolute 0.04 K/mm3 (0.00-0.031); Immature Granulocyte Percent A 0.2 % (0-0.5); Lymphocytes Absolute Auto 1.13 K/mm3 (0.9-3.2); Lymphocytes Percent Auto 6.8 % (18.3-44.2); Mean Corpuscular HGB Conc 32.7 g/dl (32-36); Mean Corpuscular Hemoglobin 29.3 pg (26-34); Mean Corpuscular Volume 89.6 fl (80-100); Mean Platelet Volume 10.5 fl (7.4-10.4); Monocytes Absolute Auto 0.7 K/mm3 (0.1-0.6); Monocytes Percent Auto 4.1 % (2.6-8.5); Neutrophils Absolute Auto 14.3 K/mm3 (1.3-6.7); Neutrophils Percent Auto 86.6 % (45.5-73.1); Platelet Count Result 130 k/mm3 (150-375); Red Blood Count 3.93 M/mm3 (4.6-6.20); Red Cell Distribution Width 14.4 % (11.5-14.5); White Blood Count 16.6 K/mm3 (4.5-10.0)
[2023-10-30 06:30] VITALS: BP 115/72; PULSE 87; RESP 18; TEMP 36.8; O2SAT 96
[2023-10-30 06:52] LABS: Alanine Aminotransferase 59 U/L (6-50); Albumin Level 2.9 g/dL (3.5-5.1); Alkaline Phosphatase 213 U/L (38-126); Anion Gap 1 mmol/L (8-16); Aspartate Amino Transferase 56 U/L (17-59); Bilirubin,Total 0.6 mg/dL (0.2-1.3); Blood Urea Nitrogen 12 mg/dL (9-20); Calcium 8.2 mg/dL (8.4-10.2); Carbon Dioxide 28 mmol/L (22-30); Chloride 113 mmol/L (98-107); Estimated CRCL calculation 159 ml/min; Estimated Glomerular Filt Rate > 60; Glucose 90 mg/dL (65-110); Phosphorus 2.4 mg/dL (2.5-4.5); Potassium 3.7 mmol/L (3.4-5.0); Sodium 142 mmol/L (137-145)
[2023-10-30 07:40] LABS: Hepatitis B Surface Antigen Negative (Negative)
[2023-10-30 07:46] LABS: HAV RESULT Negative (Negative); Hepatitis B Core IgM Result Negative (Negative)
[2023-10-30 07:58] LABS: Hepatitis C Virus Antibody Negative (Negative)
[2023-10-30] MEDS: ENOXAPARIN 40 MG/0.4 ML SYRINGE SUB-Q (08:49)
[2023-10-30] MEDS: TAMSULOSIN HCL 0.4 MG CAPSULE PO (08:50)
[2023-10-30] MEDS: DOCUSATE SODIUM 100 MG CAPSULE PO ×4 (08:50→20:39)
[2023-10-30] MEDS: ASCORBIC ACID 500 MG TABLET PO (08:50)
[2023-10-30] MEDS: BACLOFEN 10 MG TABLET 20 MG PO ×4 (08:50→20:40)
[2023-10-30] MEDS: diazePAM (*CRX) 5 MG TABLET PO ×2 (08:50→20:40)
[2023-10-30] MEDS: ASPIRIN 325 MG TABLET PO (08:50)
[2023-10-30] MEDS: POTASSIUM/PHOSPHORUS/SODIUM 1.5 GM PACKET 1 PACKET PO (08:51)
--- NOTE | 2023-10-30 10:54 | PM.IMPN ---
Progress Note: A&P Assessment and Plan (1) Sepsis: Code(s): A41.9 - Sepsis, unspecified organism <Drea Sears, Student - Last Filed: 10/30/23 14:45> Status: Acute <Drea Sears, Student - Last Filed: 10/30/23 14:45> Assessment and Plan: Patient presents with syncope, fever and chills. Met criteria for sepsis with septic shock. Patient admitted to ICU. Source is probably UTI and pyelonephritis due to obstructing ureteral stone. Urology consulted and patient underwent cystoscopy with left retrograde pyelogram and left renal stent placement. Patient treated with IV fluids. Blood pressure has improved. He does have underlying hypotension chronically. He was started on Zosyn on 10/26. UA is consistent with UTI but UCx growing mixed genital max. Blood cultures growing EColi Lactic acid up to 5.3 but normal now. WBC jumped to 25K with 24% bands but clinically much better and WBC trending down (but still with significant bandemia at 29%). WBC continues to improve, now 16K Follow WBC Switch Zosyn to Levaquin (10/29) <Drea Cuevasjulio, Student - Last Filed: 10/30/23 14:45> Patient presents with syncope, fever and chills. Met criteria for sepsis with septic shock. Patient admitted to ICU. Source is probably UTI and pyelonephritis due to obstructing ureteral stone. Urology consulted and patient underwent cystoscopy with left retrograde pyelogram and left renal stent placement. Patient treated with IV fluids. Blood pressure has improved. He does have underlying hypotension chronically. He was started on Zosyn on 10/26. UA is consistent with UTI but UCx growing mixed genital max. Blood cultures growing EColi Lactic acid up to 5.3 but normal now. WBC jumped to 25K with 24% bands but clinically much better and WBC trending down (but still with significant bandemia at 29%). WBC continues to improve, now 16K but till having symptoms. Sensitivities noted Follow WBC. Consider repeat BCx if symptoms do not improve Switch Zosyn to Levaquin (10/29) Called later by RN and informed patient had redness tracking up the arm and with pruritus during levofloxacin infusion. Infusion changed to a different arm and similar reaction occurred. He did receive the full dose of Levaquin Change to Rocephin. <Cecilio Louise MD - Last Filed: 10/30/23 18:12> (2) Acute UTI: Code(s): N39.0 - Urinary tract infection, site not specified <Drea Sears Student - Last Filed: 10/30/23 14:45> Status: Acute <Drea Sears Student - Last Filed: 10/30/23 14:45> Assessment and Plan: UA is consistent with UTI. UCx collected. Zosyn started. UCx negative but still suspect urinary source Patient takes Macrobid 100 mg p.o. daily for UTI prophylaxis which is on hold Change Abx as above <Drea Sears Student - Last Filed: 10/30/23 14:45> UA is consistent with UTI. Zosyn started. UCx negative but still suspect urinary source of EColi Patient takes Macrobid 100 mg p.o. daily for UTI prophylaxis which is on hold Change Abx as above <Cecilio Louise MD - Last Filed: 10/30/23 18:12> (3) Hydronephrosis with ureteral calculus: Code(s): N13.2 - Hydronephrosis with renal and ureteral calculous obstruction <Drea Sears Student - Last Filed: 10/30/23 14:45> Status: Acute <Drea Sears Student - Last Filed: 10/30/23 14:45> Assessment and Plan: CT scan shows left nephrolithiasis with obstructing 7 mm stone in the proximal left ureter with secondary mild left hydronephrosis and delayed left nephrogram. Urology consulted and patient underwent the above-mentioned procedure on 10/27/2023. Patient will need definitive stone treatment once infection is treated Appreciate urology input. <Drea Sears Student - Last Filed: 10/30/23 14:45> (4) Quadriplegia following spinal cord injury: Status:
[2023-10-30] MEDS: levoFLOXacin 750 MG/D5W 150 ML 750 MG/150 ML BAG 100 MG IVPB (12:26)
[2023-10-30 16:00] VITALS: BP 137/98; PULSE 86; RESP 18; TEMP 36.4; O2SAT 98
[2023-10-30 20:00] VITALS: PULSE 75; RESP 16; O2SAT 98
[2023-10-30 20:35] VITALS: BP 167/114; PULSE 75; RESP 16; TEMP 36.9; O2SAT 98
[2023-10-30] MEDS: APIXABAN 5 MG TABLET 10 MG PO (20:39)
[2023-10-30 21:37] VITALS: BP 140/90
[2023-10-31 05:45] VITALS: BP 170/113; PULSE 70; RESP 16; TEMP 36.7; O2SAT 94
[2023-10-31 06:10] LABS: Alanine Aminotransferase 77 U/L (6-50); Albumin Level 3.4 g/dL (3.5-5.1); Alkaline Phosphatase 256 U/L (38-126); Anion Gap 4 mmol/L (8-16); Aspartate Amino Transferase 60 U/L (17-59); Bilirubin,Total 0.5 mg/dL (0.2-1.3); Blood Urea Nitrogen 7 mg/dL (9-20); Calcium 8.7 mg/dL (8.4-10.2); Carbon Dioxide 25 mmol/L (22-30); Chloride 112 mmol/L (98-107); Estimated CRCL calculation 194 ml/min; Estimated Glomerular Filt Rate > 60; Glucose 97 mg/dL (65-110); Phosphorus 2.8 mg/dL (2.5-4.5); Potassium 3.8 mmol/L (3.4-5.0); Sodium 141 mmol/L (137-145)
[2023-10-31 06:11] LABS: Basophils Percent Auto 0.3 % (0.2-1.2); Eosinophils Absolute Auto 0.2 K/mm3 (0-0.3); Eosinophils Percent Auto 1.9 % (0-4.4); Hematocrit 39.9 % (42.0-52.0); Hemoglobin 12.8 g/dL (14.0-18.0); Immature Granulocyte Absolute 0.09 K/mm3 (0.00-0.031); Immature Granulocyte Percent A 0.9 % (0-0.5); Lymphocytes Absolute Auto 1.44 K/mm3 (0.9-3.2); Lymphocytes Percent Auto 14.4 % (18.3-44.2); Mean Corpuscular HGB Conc 32.1 g/dl (32-36); Mean Corpuscular Hemoglobin 28.8 pg (26-34); Mean Corpuscular Volume 89.9 fl (80-100); Mean Platelet Volume 10.3 fl (7.4-10.4); Monocytes Percent Auto 9.9 % (2.6-8.5); Neutrophils Absolute Auto 7.3 K/mm3 (1.3-6.7); Neutrophils Percent Auto 72.6 % (45.5-73.1); Platelet Count Result 154 k/mm3 (150-375); Red Blood Count 4.44 M/mm3 (4.6-6.20); Red Cell Distribution Width 14.2 % (11.5-14.5)
[2023-10-31] MEDS: BACLOFEN 10 MG TABLET 20 MG PO ×4 (09:36→21:00)
[2023-10-31] MEDS: DOCUSATE SODIUM 100 MG CAPSULE PO ×4 (09:36→21:00)
[2023-10-31] MEDS: APIXABAN 5 MG TABLET 10 MG PO ×2 (09:36→21:01)
[2023-10-31] MEDS: ASCORBIC ACID 500 MG TABLET PO (09:36)
[2023-10-31] MEDS: TAMSULOSIN HCL 0.4 MG CAPSULE PO (09:36)
[2023-10-31] MEDS: diazePAM (*CRX) 5 MG TABLET PO ×2 (09:36→21:00)
[2023-10-31] MEDS: cefTRIAXone 2 GM/NS 100 ML 2 GM/100 ML BAG IVPB (09:37)
[2023-10-31 14:00] VITALS: BP 168/115; PULSE 75; RESP 16; TEMP 36.6; O2SAT 96
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
[2023-10-31] MEDS: BISACODYL 10 MG SUPPOSITORY RECTAL (17:12)
[2023-10-31 20:00] VITALS: PULSE 101; RESP 16; O2SAT 97
[2023-10-31 20:55] VITALS: BP 90/64; PULSE 101; RESP 16; TEMP 37.1; O2SAT 97
[2023-11-01 05:48] VITALS: BP 120/83; PULSE 97; RESP 16; TEMP 36.9; O2SAT 95
[2023-11-01] MEDS: LIDOCAINE HCL 1% LOCAL INJ 2 ML AMPUL 5 ML INFILTRATE (08:15)
[2023-11-01] MEDS: ASCORBIC ACID 500 MG TABLET PO (09:25)
[2023-11-01] MEDS: APIXABAN 5 MG TABLET 10 MG PO ×2 (09:25→21:59)
[2023-11-01] MEDS: BACLOFEN 10 MG TABLET 20 MG PO ×4 (09:25→21:59)
[2023-11-01] MEDS: diazePAM (*CRX) 5 MG TABLET PO ×2 (09:25→21:59)
[2023-11-01] MEDS: TAMSULOSIN HCL 0.4 MG CAPSULE PO (09:25)
[2023-11-01] MEDS: DOCUSATE SODIUM 100 MG CAPSULE PO ×4 (09:25→21:58)
[2023-11-01] MEDS: cefTRIAXone 2 GM/NS 100 ML 2 GM/100 ML BAG IVPB (09:26)
[2023-11-01] MEDS: SALINE LOCK FLUSH 10 ML IV PUSH ×2 (13:01→21:59)
[2023-11-01 14:00] VITALS: BP 97/58; PULSE 100; RESP 16; TEMP 37; O2SAT 97
--- NOTE | 2023-11-01 15:43 | PM.IMPN ---
Progress Note: A&P Assessment and Plan (1) Sepsis: Code(s): A41.9 - Sepsis, unspecified organism <Drea Carline Renu, Student - Last Filed: 11/01/23 15:47> Status: Acute <Drea Crowley Renu, Student - Last Filed: 11/01/23 15:47> Assessment and Plan: Patient presents with syncope, fever and chills. Met criteria for sepsis with septic shock. Patient admitted to ICU. Source is probably UTI and pyelonephritis due to obstructing ureteral stone. Urology consulted and patient underwent cystoscopy with left retrograde pyelogram and left renal stent placement. Patient treated with IV fluids. Blood pressure has improved. He does have underlying hypotension chronically. He was started on Zosyn on 10/26. UA is consistent with UTI but UCx growing mixed genital max. Blood cultures growing EColi Lactic acid up to 5.3 but normal now. WBC jumped to 25K with 24% bands but clinically much better and WBC trending down (but still with significant bandemia at 29%). WBC near normal now Sensitivities noted Switched Zosyn to Levaquin (10/29) but patient had redness tracking up the arm and with pruritus during levofloxacin infusion. Infusion changed to a different arm and similar reaction occurred. He did receive the full dose of Levaquin Changed to Rocephin today and tolerated this well. Spoke with PharmD ID who recommended IV abx for home. Midline placement. Care coordination to arrange for home IV abx Likely home tomorrow (11/01) with IV Rocephin for 8 days <Drea LissetteSimeon Sears, Student - Last Filed: 11/01/23 15:47> Patient presents with syncope, fever and chills. Met criteria for sepsis with septic shock. Patient admitted to ICU. Source is probably UTI and pyelonephritis due to obstructing ureteral stone. Urology consulted and patient underwent cystoscopy with left retrograde pyelogram and left renal stent placement. Patient treated with IV fluids. Blood pressure has improved. He does have underlying hypotension chronically. He was started on Zosyn on 10/26. UA is consistent with UTI but UCx growing mixed genital max. Blood cultures growing EColi Lactic acid up to 5.3 but normal now. WBC jumped to 25K with 24% bands but clinically much better and WBC trending down (but still with significant bandemia at 29%). WBC near normal now Sensitivities noted Switched Zosyn to Levaquin (10/29) but patient had redness tracking up the arm and with pruritus during levofloxacin infusion. Infusion changed to a different arm and similar reaction occurred. He did receive the full dose of Levaquin Changed to Rocephin and tolerated this well. Spoke with PharmD ID who recommended IV abx for home. Midline placement. Care coordination to arrange for home IV abx Likely home tomorrow (11/01) with IV Rocephin for 8 days (through 11/08) <Cecilio Louise MD - Last Filed: 11/01/23 18:17> (2) Acute UTI: Code(s): N39.0 - Urinary tract infection, site not specified <Drea Sears Student - Last Filed: 11/01/23 15:47> Status: Acute <Drea Sears Student - Last Filed: 11/01/23 15:47> Assessment and Plan: UA is consistent with complicated UTI. Zosyn started. UCx negative but still suspect urinary source of EColi Patient takes Macrobid 100 mg p.o. daily for UTI prophylaxis which is on hold Change Abx as above <Drea Sears Student - Last Filed: 11/01/23 15:47> (3) Hydronephrosis with ureteral calculus: Code(s): N13.2 - Hydronephrosis with renal and ureteral calculous obstruction <Drea Sears Student - Last Filed: 11/01/23 15:47> Status: Acute <Drea Sears Student - Last Filed: 11/01/23 15:47> Assessment and Plan: CT scan shows left nephrolithiasis with obstructing 7 mm stone in the proximal left ureter with secondary mild left hydronephrosis and delayed left nephrogram. Urology consulted and patient underwent the above-mentioned pro
[2023-11-01 22:00] VITALS: BP 125/79; PULSE 90; RESP 16; TEMP 36.9; O2SAT 100
[2023-11-02 05:28] VITALS: BP 118/91; PULSE 90; RESP 14; TEMP 36.4; O2SAT 97
[2023-11-02] MEDS: SALINE LOCK FLUSH 10 ML IV PUSH ×2 (05:29→14:33)
[2023-11-02 07:49] VITALS: O2SAT 96
[2023-11-02] MEDS: BACLOFEN 10 MG TABLET 20 MG PO ×2 (08:09→12:44)
[2023-11-02] MEDS: TAMSULOSIN HCL 0.4 MG CAPSULE PO (08:09)
[2023-11-02] MEDS: APIXABAN 5 MG TABLET 10 MG PO (08:09)
[2023-11-02] MEDS: cefTRIAXone 2 GM/NS 100 ML 2 GM/100 ML BAG IVPB (08:09)
[2023-11-02] MEDS: DOCUSATE SODIUM 100 MG CAPSULE PO ×2 (08:10→12:44)
[2023-11-02] MEDS: ASCORBIC ACID 500 MG TABLET PO (08:10)
[2023-11-02] MEDS: diazePAM (*CRX) 5 MG TABLET PO (08:10)
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
[2023-11-02 14:47] VITALS: BP 108/58; PULSE 84; RESP 16; TEMP 36.4; O2SAT 98
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
== END 2023-11-02 17:05 | disposition home health service (06) | DRG 853 ==
LOC: ANHED 14:08 → ANHSURGERY 14:14 → ANHICU 17:16 → ANH3MED 10-28 18:07
PROVIDERS: Internal Medicine; Student in an Organized Health Care Education/Training Program; Urology; Admitting Provider Family Medicine; Emergency Provider Emergency Medicine; PCP Family Medicine; Visit Provider Family Medicine
PROC: 0T778DZ Dilation of Left Ureter with Intraluminal Device, Via Natural or Artificial Opening Endoscopic (ICD-10-PCS; CPT 52352; principal; 2023-10-27 15:45)
DX: A41.51 Sepsis due to Escherichia coli [E. coli] (principal); G82.50 Quadriplegia, unspecified; N13.2 Hydronephrosis with renal and ureteral calculous obstruction; N39.0 Urinary tract infection, site not specified; I82.452 Acute embolism and thrombosis of left peroneal vein; I95.1 Orthostatic hypotension; K80.20 Calculus of gallbladder without cholecystitis without obstruction; N31.2 Flaccid neuropathic bladder, not elsewhere classified; Z79.82 Long term (current) use of aspirin; Z85.828 Personal history of other malignant neoplasm of skin; Z20.822 Contact with and (suspected) exposure to COVID-19
CPT/HCPCS: 36415; 36569; 74018; 74177; 74420; 76705; 80053; 80074; 83036; 83605; 83690; 83735; 84100; 85025; 87040; 87077; 87086; 87088; 87186; 87637; 93970; 96361; 96365; 96375; 99285; A9270; C1769; C2617; G0378; J0696; J1650; J1956; J2543; J2704; J3010; J7030; J7120; Q9966; Q9967

== ENCOUNTER 2023-11-08 14:15 | Outpatient (NON) | payer BC, MEDICARE, SELFPAY ==
[2023-11-08 15:03] LABS: Basophils Percent Auto 0.5 % (0.2-1.2); Eosinophils Absolute Auto 0.2 K/mm3 (0-0.3); Eosinophils Percent Auto 2.2 % (0-4.4); Hematocrit 40.8 % (42.0-52.0); Immature Granulocyte Absolute 0.08 K/mm3 (0.00-0.031); Lymphocytes Absolute Auto 1.48 K/mm3 (0.9-3.2); Lymphocytes Percent Auto 19.3 % (18.3-44.2); Mean Corpuscular HGB Conc 31.9 g/dl (32-36); Mean Corpuscular Hemoglobin 29.1 pg (26-34); Mean Corpuscular Volume 91.3 fl (80-100); Mean Platelet Volume 9.4 fl (7.4-10.4); Monocytes Absolute Auto 0.4 K/mm3 (0.1-0.6); Monocytes Percent Auto 5.1 % (2.6-8.5); Neutrophils Absolute Auto 5.5 K/mm3 (1.3-6.7); Neutrophils Percent Auto 71.9 % (45.5-73.1); Platelet Count Result 505 k/mm3 (150-375); Red Blood Count 4.47 M/mm3 (4.6-6.20); Red Cell Distribution Width 14.2 % (11.5-14.5); White Blood Count 7.7 K/mm3 (4.5-10.0)
[2023-11-08 16:39] LABS: Anion Gap 8 mmol/L (4-12); Blood Urea Nitrogen 9 mg/dL (9-20); CRP 0.6 mg/dL (<1.0); Carbon Dioxide 25 mmol/L (22-30); Chloride 107 mmol/L (98-107); Estimated Glomerular Filt Rate > 60; Glucose 82 mg/dL (65-110); Potassium 4.1 mmol/L (3.4-5.0); Sodium 140 mmol/L (137-145)
== END 2023-11-08 14:16 | disposition home or self-care (01) ==
LOC: HOME HLTH 14:21
PROVIDERS: PCP Family Medicine; Visit Provider Internal Medicine
DX: N39.0 Urinary tract infection, site not specified (principal); A41.9 Sepsis, unspecified organism
CPT/HCPCS: 80048; 85025; 86140

== ENCOUNTER 2023-11-20 12:48 | Inpatient (IN) | payer BC, MEDICARE, SELFPAY ==
[2023-11-20] VITALS (29 sets, daily range): BP systolic 87–122; BP diastolic 56–92; PULSE 82–116; RESP 11–26; TEMP 37.6–39.8; O2SAT 95–98
--- NOTE | ~2023-11-20 | CT_ITS ---
EXAMINATION: CT abdomen pelvis wo con DATE: 11/20/2023 16:50 INDICATION: stone evaluation TECHNIQUE: Computed tomography (CT) of the abdomen and pelvis was performed without intravenous contr ast. Automated exposure control and iterative reconstruction technique were employed. The dose-length product was 442.25 mGy-cm. COMPARISON: 10/26/2013; x-ray abdomen 11/20/2023. FINDINGS: Lower thorax: Mild bibasilar scar/atelectasis. Liver: Normal. Biliary/Gallbladder: Gallbladder is normal. No bile duct dilation. Pancreas: No mass or duct dilation. Spleen: Normal. Adrenals:No mass. Kidneys: Left midpole and staghorn lower pole calcifications. Left ureteral stent, in good position. 8 mm calcification in the distal left ureter. Mild left periureteral stranding. No hydronephrosis. Un remarkable right kidney. GI tract: No small or large bowel dilation. Normal appendix. Mesentery/Peritoneum: No ascites, mass, or free air. Retroperitoneum: No mass. Pelvis: Bladder wall thickening. Mild prostatomegaly with calcifications. Soft Tissues: Soft tissues and body wall unremarkable. Bones: No acute osseous finding. IMPRESSION: Cystitis versus bladder wall thickening from chronic outlet obstruction. Left ureteral stent, in good position. 8mm distal left ureteral stone, no hydronephrosis. Periureteral stranding may represent inflammatory change from the stent/stone or ascending infection. Reviewed, dictated and finalized at [facility]. IMPRESSION: Cystitis versus bladder wall thickening from chronic outlet obstruction. Left ureteral stent, in good position. 8mm distal left ureteral stone, no hydronephrosis. Periureteral stranding may represent inflammatory change from the stent/stone o r ascending infection.
--- NOTE | ~2023-11-20 | XR_ITS ---
EXAMINATION: XR stent kub - surgery DATE: 11/24/2023 12:01 INDICATION: Left ureteral stone. TECHNIQUE: 4 intraoperative fluoroscopic views of the abdomen and pelvis were obtained. I was not pre sent. Fluoroscopy exposure time was 29 seconds. COMPARISON: CT abdomen and pelvis 11/20/2023 FINDINGS: Initial images demonstrate a left internal ureteral stent in expected position. The final i mages demonstrate a new left internal ureteral stent in expected position. IMPRESSION: 1. New left internal ureteral stent in expected position. Reviewed, dictated and finalized at location A.
--- NOTE | ~2023-11-20 | XR_ITS ---
EXAM: XR abdomen/kub 1V DATE: 11/20/2023 15:41 HISTORY: stent eval . COMPARISON: 10/28/2023. FINDINGS: Clear lung bases. Left ureteral stent in expected position. Multiple air-filled loops of n ondilated small bowel and presumably chronic mildly dilated large bowel. Left-sided staghorn calculi. 7 mm calcification adjacent to the distal stent at the level of the left sacrum. Heterotopic ossific ation adjacent to the left hip. Lumbar degenerative disc disease. Bilateral hip osteoarthritis. IMPRESSION: Left ureteral stent in expected position. Possible 7 mm left distal ureteral stone. Reviewed, dictated and finalized at location K.
--- NOTE | ~2023-11-20 | XR_ITS ---
XR chest 2V DATE: 11/20/2023 13:41 INDICATION: Fever TECHNIQUE: AP and lateral views COMPARISON: 07/31/2010 two-view chest is not available from PACS at this time. FINDINGS: Bilateral hyperinflation. Mild bilateral apical capping. No pulmonary infiltrate or consoli dation, pleural effusion or pulmonary vascular congestion or pneumothorax is detected. Heart size is within normal range. Pectus excavatum. Levoscoliosis and degenerative spurring of the thoracic spine. IMPRESSION: Bilateral hyperinflation; no active cardiac pulmonary disease Scoliosis and degenerative spurring of the thoracic spine Pectus excavatum Reviewed, dictated and finalized at location A.
--- NOTE | 2023-11-20 13:34 | PC.NURSE ---
Pt taken to xray
--- NOTE | 2023-11-20 13:40 | PC.NURSE ---
Pt returned to room 7 at this time
[2023-11-20] MEDS: ACETAMINOPHEN 500 MG TABLET 1000 MG PO (14:01)
[2023-11-20 14:20] LABS: Basophils Percent Auto 0.2 % (0.2-1.2); Eosinophils Percent Auto 0.2 % (0-4.4); Hematocrit 38.3 % (42.0-52.0); Hemoglobin 12.5 g/dL (14.0-18.0); Immature Granulocyte Percent A 0.5 % (0-0.5); Lymphocytes Absolute Auto 0.38 K/mm3 (0.9-3.2); Mean Corpuscular HGB Conc 32.6 g/dl (32-36); Mean Corpuscular Hemoglobin 29.1 pg (26-34); Mean Corpuscular Volume 89.1 fl (80-100); Mean Platelet Volume 9.8 fl (7.4-10.4); Monocytes Absolute Auto 1.2 K/mm3 (0.1-0.6); Monocytes Percent Auto 6.1 % (2.6-8.5); Neutrophils Absolute Auto 17.1 K/mm3 (1.3-6.7); Platelet Count Result 290 k/mm3 (150-375); White Blood Count 18.8 K/mm3 (4.5-10.0)
[2023-11-20 14:30] LABS: INR 1.3; Prothrombin Time 16.5 Seconds (11.1-14.7)
[2023-11-20 14:31] LABS: Partial Thromboplastin Time 38.7 Seconds (22.3-36.8)
[2023-11-20 14:37] LABS: Lactic Acid Reflex 1.1 mmol/L (0.7-2.0)
[2023-11-20 14:41] LABS: Alanine Aminotransferase 28 U/L (6-50); Albumin Level 4.1 g/dL (3.5-5.1); Alkaline Phosphatase 114 U/L (38-126); Anion Gap 10 mmol/L (4-12); Aspartate Amino Transferase 31 U/L (17-59); Bilirubin,Total 0.9 mg/dL (0.2-1.3); Blood Urea Nitrogen 12 mg/dL (9-20); Calcium 9.1 mg/dL (8.4-10.2); Carbon Dioxide 22 mmol/L (22-30); Chloride 105 mmol/L (98-107); Estimated CRCL calculation 135 ml/min; Estimated Glomerular Filt Rate > 60; Glucose 116 mg/dL (65-110); Potassium 3.8 mmol/L (3.4-5.0); Sodium 137 mmol/L (137-145)
[2023-11-20 14:48] LABS: CRP 8.6 mg/dL (<1.0)
[2023-11-20 15:20] LABS: Bacteria Urine 4+ /hpf; Non Pathogenic Casts 0-2; RBC Urine >100 /hpf (0-2); Squamous Epithelial Cell Urine None Seen /hpf (Few); WBC Urine >100 /hpf (0-3)
[2023-11-20 15:22] LABS: Appearance Urine Cloudy (Clear); Bilirubin Urine Negative (Negative); Blood Urine 3+ (Negative); Glucose Urine UA Negative (Negative); Ketones Urine 3+ mg/dL (Negative); Leukocyte Esterase Ur 3+ LEU/UL (Negative); Nitrate Urine Negative (Negative); Protein Urine 3+ mg/dL (Negative); Specific Grav Ur 1.016 (1.001-1.035); pH Urine 5.5 (5.0-9.0)
[2023-11-20 15:23] LABS: Color Urine Dark Yellow (Yellow)
[2023-11-20 15:24] LABS: Add Urine Microscopic? YES
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
[2023-11-20] MEDS: SODIUM CHLORIDE 0.9% IV 2,700 ML/1,000 ML BAG 999 ML IV CONT ×3 (16:16→16:27)
[2023-11-20] MEDS: CEFEPIME 2 GM/NS 50 ML 2 GM/50 ML BAG IVPB ×2 (16:22→20:50)
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
[2023-11-20] MEDS: ACETAMINOPHEN 325 MG TABLET 650 MG PO ×2 (18:20→22:45)
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
--- NOTE | 2023-11-20 19:40 | ADMGEN ---
This patient, Ge Isabel, was admitted to Medical Room 244-. Patient/family oriented to hospital policies and general routines including ID bracelet, bed and alarms, visiting hours, pain management, procedures, bathroom and other care routines, personal items, smoking policy, room service/diet, and visiting hours. Information on how to activate the Rapid Response Team has been discussed. Patient/Family are encouraged to report perceived risks to care and to ask questions if they do not understand what they are told or what they should do.
[2023-11-21] VITALS (9 sets, daily range): BP systolic 126–132; BP diastolic 65–67; PULSE 88–103; RESP 17–18; TEMP 37.2–39.3; O2SAT 96–99
[2023-11-21] MEDS: BACLOFEN 10 MG TABLET 20 MG PO ×5 (00:09→20:46)
[2023-11-21] MEDS: SODIUM CHLORIDE 0.9% IV 1,000 ML 100 ML IV CONT (00:09)
[2023-11-21] MEDS: diazePAM (*CRX) 5 MG TABLET PO ×3 (00:10→20:46)
[2023-11-21] MEDS: APIXABAN 5 MG TABLET PO ×3 (00:10→20:46)
[2023-11-21] MEDS: DOCUSATE SODIUM 100 MG CAPSULE PO ×5 (00:10→20:46)
[2023-11-21] MEDS: ACETAMINOPHEN 325 MG TABLET 650 MG PO ×3 (03:53→18:21)
[2023-11-21 05:45] LABS: Basophils Percent Auto 0.2 % (0.2-1.2); Hematocrit 32.5 % (42.0-52.0); Hemoglobin 10.4 g/dL (14.0-18.0); Immature Granulocyte Absolute 0.24 K/mm3 (0.00-0.031); Immature Granulocyte Percent A 1.1 % (0-0.5); Lymphocytes Absolute Auto 0.49 K/mm3 (0.9-3.2); Lymphocytes Percent Auto 2.3 % (18.3-44.2); Mean Corpuscular Hemoglobin 28.7 pg (26-34); Mean Corpuscular Volume 89.5 fl (80-100); Monocytes Absolute Auto 1.7 K/mm3 (0.1-0.6); Monocytes Percent Auto 7.9 % (2.6-8.5); Neutrophils Absolute Auto 18.8 K/mm3 (1.3-6.7); Neutrophils Percent Auto 88.5 % (45.5-73.1); Platelet Count Result 229 k/mm3 (150-375); Red Blood Count 3.63 M/mm3 (4.6-6.20); White Blood Count 21.3 K/mm3 (4.5-10.0)
[2023-11-21] MEDS: CEFEPIME 2 GM/NS 50 ML 2 GM/50 ML BAG IVPB ×3 (05:52→20:47)
[2023-11-21 06:05] LABS: Anion Gap 7 mmol/L (4-12); Blood Urea Nitrogen 8 mg/dL (9-20); Calcium 7.9 mg/dL (8.4-10.2); Carbon Dioxide 20 mmol/L (22-30); Chloride 106 mmol/L (98-107); Estimated CRCL calculation 194 ml/min; Estimated Glomerular Filt Rate > 60; Glucose 106 mg/dL (65-110); Magnesium 1.8 mg/dL (1.6-2.3); Potassium 3.3 mmol/L (3.4-5.0); Sodium 133 mmol/L (137-145)
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
--- NOTE | 2023-11-21 06:53 | P.PNIM_ITS ---
Progress Note: A&P Assessment and Plan (1) Sepsis: Qualifiers: Sepsis acute organ dysfunction status: without acute organ dysfunction Sepsis type: Escherichia coli Qualified Code(s): A41.51 - Sepsis due to Esch erichia coli [E. coli] Code(s): A41.9 - Sepsis, unspecified organism Status: Acute Assessment and Plan: 11/21/23: * Meeting sepsis criteria with an initial temperature of 102.2?, initial heart rate of 107, white blood cell count 18.8, source infection UTI * Patient was given 2700 mL normal saline while in the ED * Blood and urine cultures were obtained and are pending * started on cefepime 2 g will continue * Lactic acid 1.1 (2) Urinary tract infection: Code(s): N39.0 - Urinary tract infection, site not specified Status: Acute Assessment and Plan: 11/20/23: * UA showing 3+ protein, 3+ ketones, 3+ urine blood, 3+ leukocytes, greater 100 urine RBCs, greater than 100 urine wbc's, urine bacteria 4+ * Urine and blood culture is pending * Continue with cefepime (3) Left ureteral calculus: Code(s): N20.1 - Calculus of ureter Status: Acute Assessment and Plan: 11/21/23: * KUB showing left urethral stent in expected position, possible 7 mm left distal ureteral stone * CT of the abdomen pelvis showing cystitis, left ureteral stent in good position, 8 mm distal left ureteral stone, no hydronephrosis, Shey ureteral stranding representing inflammation. * Urology was consulted * Will touch base with Dr. Medrano and see if we need to hold his Eliquis for now and if he plans on taking the patient for cystoscopy. * Continue cefepime for urinary tract infection * Urine and blood cultures are pending * Continue Flomax (4) Hypotension: Qualifiers: Hypotension type: idiopathic hypotension Qualified Code(s): I95.0 - Idiopathic hypotension Code(s): I95.9 - Hypotension, unspecified Status: Inactive Assessment and Plan: 11/21/23: * Initially patient's blood pressure was ranging 87/66 to 90/56, has since then recovered and is ranging 115/63 to 122/71 * Likely secondary to sepsis (5) Deep venous thrombosis of left peroneal vein: Onset Date: 10/2023 Code(s): I82.452 - Acute embolism and thrombosis of left peroneal vein Status: Acute Assessment and Plan: 11/21/23: * Patient recently had a venous Doppler study on 10/30/2023 showing thrombus in the left peroneal vein was started on Eliquis * Continue Eliquis (6) Benign prostatic hyperplasia: Qualifiers: Lower urinary tract symptom detail: urinary hesitancy Lower urinary tract symptom presence: symptoms present Qualified Code(s): N40.1 - Benign prostatic hyperplasia with lower urinary tract symptoms; R39.11 - Hesitancy of micturition Code(s): N40.0 - Benign prostatic hyperplasia without lower urinary tract symptoms Status: Acute Assessment and Plan: 11/21/23: * Continue Flomax (7) Quadriplegia following spinal cord injury: Status: Chronic Assessment and Plan: 11/21/23: * Of note Time Spent With Patient Time with patient: Greater than 35 minutes Subjective Date/time seen: 11/21/23 06:53 Interval history: This is a 53-year-old male who presented to the hospital on 11/20/2023 with complaints of flank pain and fever. Workup in the hospital included chest x-ray which shows bilateral hyperinflation, no acute cardiopulmonary disease. KUB showed left urethral stent in expected position, possible 7 mm left distal ureteral stone. CT of the abdomen and pelvis showed cy
--- NOTE | 2023-11-21 06:53 | PM.IMPN ---
Progress Note: A&P Assessment and Plan (1) Sepsis: Qualifiers: Sepsis acute organ dysfunction status: without acute organ dysfunction Sepsis type: Escherichia coli Qualified Code(s): A41.51 - Sepsis due to Escherichia coli [E. coli] Code(s): A41.9 - Sepsis, unspecified organism Status: Acute Assessment and Plan: 11/21/23: Meeting sepsis criteria with an initial temperature of 102.2?, initial heart rate of 107, white blood cell count 18.8, source infection UTI Patient was given 2700 mL normal saline while in the ED Blood and urine cultures were obtained and are pending started on cefepime 2 g will continue Lactic acid 1.1 (2) Urinary tract infection: Code(s): N39.0 - Urinary tract infection, site not specified Status: Acute Assessment and Plan: 11/20/23: UA showing 3+ protein, 3+ ketones, 3+ urine blood, 3+ leukocytes, greater 100 urine RBCs, greater than 100 urine wbc's, urine bacteria 4+ Urine and blood culture is pending Continue with cefepime (3) Left ureteral calculus: Code(s): N20.1 - Calculus of ureter Status: Acute Assessment and Plan: 11/21/23: KUB showing left urethral stent in expected position, possible 7 mm left distal ureteral stone CT of the abdomen pelvis showing cystitis, left ureteral stent in good position, 8 mm distal left ureteral stone, no hydronephrosis, Shey ureteral stranding representing inflammation. Urology was consulted Will touch base with Dr. Medrano and see if we need to hold his Eliquis for now and if he plans on taking the patient for cystoscopy. Continue cefepime for urinary tract infection Urine and blood cultures are pending Continue Flomax (4) Hypotension: Qualifiers: Hypotension type: idiopathic hypotension Qualified Code(s): I95.0 - Idiopathic hypotension Code(s): I95.9 - Hypotension, unspecified Status: Inactive Assessment and Plan: 11/21/23: Initially patient's blood pressure was ranging 87/66 to 90/56, has since then recovered and is ranging 115/63 to 122/71 Likely secondary to sepsis (5) Deep venous thrombosis of left peroneal vein: Onset Date: 10/2023 Code(s): I82.452 - Acute embolism and thrombosis of left peroneal vein Status: Acute Assessment and Plan: 11/21/23: Patient recently had a venous Doppler study on 10/30/2023 showing thrombus in the left peroneal vein was started on Eliquis Continue Eliquis (6) Benign prostatic hyperplasia: Qualifiers: Lower urinary tract symptom detail: urinary hesitancy Lower urinary tract symptom presence: symptoms present Qualified Code(s): N40.1 - Benign prostatic hyperplasia with lower urinary tract symptoms; R39.11 - Hesitancy of micturition Code(s): N40.0 - Benign prostatic hyperplasia without lower urinary tract symptoms Status: Acute Assessment and Plan: 11/21/23: Continue Flomax (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 Workup in the hospital included chest x-ray which shows bilateral hyperinflation, no acute cardiopulmonary disease. KUB showed left urethral stent in expected position, possible 7 mm left distal ureteral stone. CT of the abdomen and pelvis showed cystitis versus bladder wall thickening from chronic outlet obstruction, left urethral stent in good position, 8 mm distal left ureteral stone, no hydronephrosis, periurethral stranding representing inflammatory change. Initial labs showing a white blood cell count of 18.8, hemoglobin 12.5, PTT 38.7, INR 1.3, lactate 1.1, liver enzymes are normal, C reactive protein is 8.6. UA was obtained and showed 3+ urine
[2023-11-21] MEDS: TAMSULOSIN HCL 0.4 MG CAPSULE PO (11:18)
[2023-11-21] MEDS: ASCORBIC ACID 500 MG TABLET PO (11:18)
[2023-11-21] MEDS: POTASSIUM CHLORIDE 20 MEQ ER TABLET 40 MEQ PO (11:28)
[2023-11-21] MEDS: BISACODYL 10 MG SUPPOSITORY RECTAL (18:23)
[2023-11-22] VITALS (9 sets, daily range): BP systolic 110–117; BP diastolic 55–71; PULSE 88–100; RESP 18–21; TEMP 36.6–38.3; O2SAT 97–100
[2023-11-22] MEDS: ACETAMINOPHEN 325 MG TABLET 650 MG PO ×2 (01:04→22:16)
[2023-11-22 05:20] LABS: Basophils Percent Auto 0.1 % (0.2-1.2); Eosinophils Percent Auto 0.1 % (0-4.4); Hematocrit 35.4 % (42.0-52.0); Hemoglobin 11.4 g/dL (14.0-18.0); Immature Granulocyte Absolute 0.06 K/mm3 (0.00-0.031); Immature Granulocyte Percent A 0.5 % (0-0.5); Lymphocytes Absolute Auto 0.97 K/mm3 (0.9-3.2); Mean Corpuscular HGB Conc 32.2 g/dl (32-36); Mean Corpuscular Hemoglobin 28.9 pg (26-34); Mean Corpuscular Volume 89.8 fl (80-100); Mean Platelet Volume 10.2 fl (7.4-10.4); Monocytes Absolute Auto 1.4 K/mm3 (0.1-0.6); Monocytes Percent Auto 11.4 % (2.6-8.5); Neutrophils Absolute Auto 9.7 K/mm3 (1.3-6.7); Neutrophils Percent Auto 79.9 % (45.5-73.1); Platelet Count Result 188 k/mm3 (150-375); Red Blood Count 3.94 M/mm3 (4.6-6.20); Red Cell Distribution Width 13.9 % (11.5-14.5); White Blood Count 12.2 K/mm3 (4.5-10.0)
[2023-11-22 05:32] LABS: Alanine Aminotransferase 35 U/L (6-50); Albumin Level 3.2 g/dL (3.5-5.1); Alkaline Phosphatase 107 U/L (38-126); Anion Gap 7 mmol/L (4-12); Aspartate Amino Transferase 48 U/L (17-59); Bilirubin,Total 0.3 mg/dL (0.2-1.3); Blood Urea Nitrogen 5 mg/dL (9-20); Carbon Dioxide 21 mmol/L (22-30); Chloride 106 mmol/L (98-107); Estimated CRCL calculation 194 ml/min; Estimated Glomerular Filt Rate > 60; Glucose 130 mg/dL (65-110); Magnesium 2.1 mg/dL (1.6-2.3); Potassium 3.1 mmol/L (3.4-5.0); Sodium 134 mmol/L (137-145)
[2023-11-22] MEDS: CEFEPIME 2 GM/NS 50 ML 2 GM/50 ML BAG IVPB ×3 (05:58→21:45)
--- NOTE | 2023-11-22 07:04 | WPDUROPN2 ---
Progress Note: A&P Assessment and Plan (1) Acute UTI: Code(s): N39.0 - Urinary tract infection, site not specified Status: Acute (2) Infection associated with indwelling ureteral stent: Code(s): T83.592A - Infection and inflammatory reaction due to indwelling ureteral stent, initial encounter Status: Acute Assessment and Plan: So far, blood culture showing no growth and urine culture pending Will tentatively planned left ureteroscopy with laser lithotripsy stone extraction on . There will be no need for him to stop anticoagulants for that procedure Subjective Subjective Date/Time Seen: 11/22/23 07:04 Interval history: Comfortable, no complaints Review of Systems Review of Systems: All systems reviewed & are unremarkable except as noted in HPI and below Exam Const: General: no acute distress Resp: Effort & Inspection: normal respiratory effort GI: Inspection: non-distended GI Palp: No abdominal tenderness and No Guarding due to palpation present (GI) Auscultation: normal bowel sounds Objective Data Vital Signs Vital Signs: Vital Signs - 24 hr 11/21/23 11:09 11/21/23 11:19 11/21/23 14:22 Temperature 100 F H 100 F H 99.2 F Pulse Rate 88 Respiratory Rate 17 Blood Pressure 132/65 Pulse Oximetry 98 Oxygen Delivery 11/21/23 11:20 11/21/23 12:19 11/21/23 18:21 Temperature 99 F 102.8 F H Pulse Rate Respiratory Rate Blood Pressure Pulse Oximetry Oxygen Delivery Room Air 11/21/23 19:42 11/21/23 19:21 11/22/23 01:04 Temperature 99.5 F 99 F 100.4 F H Pulse Rate 99 Respiratory Rate 18 Blood Pressure 128/66 Pulse Oximetry 99 Oxygen Delivery 11/21/23 20:00 11/22/23 02:04 11/22/23 05:12 Temperature 101 F H 98.3 F Pulse Rate 88 Respiratory Rate 18 Blood Pressure 117/71 Pulse Oximetry 99 Oxygen Delivery Room Air Intake/Output Intake/Output: Intake & Output 11/19/23 11/20/23 11/21/23 11/22/23 23:59 23:59 23:59 23:59 Intake Total 1033.2 1850 Output Total 8450 5100 Balance 1033.2 -7490 5100 Meds/Results Medications: Active Medications Generic Name Dose Route Start Last Admin Trade Name Freq PRN Reason Stop Dose Admin Acetaminophen 650 mg 11/20/23 16:41 11/22/23 01:04 Acetaminophen 325 Mg Tablet PO 650 mg Q4H PRN Administration Mild Pain (1-3) or Fever Apixaban 5 mg 11/20/23 23:50 11/21/23 20:46 Apixaban 5 Mg Tablet PO 5 mg Q12HR WALTER Administration Ascorbic Acid 500 mg 11/21/23 09:00 11/21/23 11:18 Ascorbic Acid 500 Mg Tablet PO 500 mg DAILY WALTER Administration Baclofen 20 mg 11/20/23 23:50 11/21/23 20:46 Baclofen 10 Mg Tablet PO 20 mg QID WALTER Administration Bisacodyl 10 mg 11/21/23 17:25 11/21/23 18:23 Bisacodyl 10 Mg Suppository RECTAL 10 mg QAM PRN Administration Constipation Diazepam 5 mg 11/20/23 23:50 11/21/23 20:46 Diazepam (*Crx) 5 Mg Tablet PO 5 mg 1200,2100 WALTER Administration Docusate Sodium 100 mg 11/20/23 23:50 11/21/23 20:46 Docusate Sodium 100 Mg Capsule PO 100 mg QID WALTER Administration Cefepime HCl 2 gm in 50 mls @ 100 mls/hr 11/20/23 22:00 11/22/23 05:58 Maxipime 2 Gm/Ns 50 Ml IVPB 100 mls/hr Q8HR WALTER Administration Ondansetron HCl 4 mg 11/20/23 16:41 Ondansetron Inj 4 Mg/2 Ml Vial IV PUSH Q4H PRN Nausea Tamsulosin HCl 0.4 mg 11/21/23 09:00 11/21/23 11:18 Tamsulosin Hcl 0.4 Mg Capsule PO 0.4 mg DAILY WALTER Administration Radiology Results: ITS Impressions Chest X-Ray 11/20/23 13:54 IMPRESSION: Bilateral hyperinflation; no active cardiac pulmonary disease Scoliosis and degenerative spurring of the thoracic spine Pectus excavatum Abdomen X-Ray 11/20/23 15:48 IMPRESSION: Left ureteral stent in expected position. Possible 7 mm left distal ureteral stone. Abdomen/Pelvis CT 11/20/23 17:04 IMPRESSION: Cystitis v
--- NOTE | 2023-11-22 07:13 | P.PNIM_ITS ---
Progress Note: A&P Assessment and Plan (1) Sepsis: Qualifiers: Sepsis acute organ dysfunction status: without acute organ dysfunction Sepsis type: Escherichia coli Qualified Code(s): A41.51 - Sepsis due to Esch erichia coli [E. coli] Code(s): A41.9 - Sepsis, unspecified organism Status: Acute Assessment and Plan: 11/21/23: * Meeting sepsis criteria with an initial temperature of 102.2?, initial heart rate of 107, white blood cell count 18.8, source infection UTI * Patient was given 2700 mL normal saline while in the ED * Blood and urine cultures were obtained and are pending * started on cefepime 2 g will continue * Lactic acid 1.1 11/22/23: * T-max 102.8? overnight * White blood cell count down to 12.2 * Blood culture showing no growth on preliminary read * Urine cultures still pending * Continue with cefepime 2 g (2) Urinary tract infection: Code(s): N39.0 - Urinary tract infection, site not specified Status: Acute Assessment and Plan: 11/20/23: * UA showing 3+ protein, 3+ ketones, 3+ urine blood, 3+ leukocytes, greater 100 urine RBCs, greater than 100 urine wbc's, urine bacteria 4+ * Urine and blood culture is pending * Continue with cefepime 11/22/23: * Blood culture showing no growth on preliminary read * Urine cultures are still pending * Continue with cefepime 2 g (3) Left ureteral calculus: Code(s): N20.1 - Calculus of ureter Status: Acute Assessment and Plan: 11/21/23: * KUB showing left urethral stent in expected position, possible 7 mm left distal ureteral stone * CT of the abdomen pelvis showing cystitis, left ureteral stent in good position, 8 mm distal left ureteral stone, no hydronephrosis, Shey ureteral stranding representing inflammation. * Urology was consulted * Will touch base with Dr. Medrano and see if we need to hold his Eliquis for now and if he plans on taking the patient for cystoscopy. * Continue cefepime for urinary tract infection * Urine and blood cultures are pending * Continue Flomax 11/22/23: * No change (4) Deep venous thrombosis of left peroneal vein: Onset Date: 10/2023 Code(s): I82.452 - Acute embolism and thrombosis of left peroneal vein Status: Acute Assessment and Plan: 11/21/23: * Patient recently had a venous Doppler study on 10/30/2023 showing thrombus in the left peroneal vein was started on Eliquis * Continue Eliquis 11/22/23: * No change to current treatment plan (5) Benign prostatic hyperplasia: Qualifiers: Lower urinary tract symptom detail: urinary hesitancy Lower urinary tract symptom presence: symptoms present Qualified Code(s): N40.1 - Benign prostatic hyperplasia with lower urinary tract symptoms; R39.11 - Hesitancy of micturition Code(s): N40.0 - Benign prostatic hyperplasia without lower urinary tract symptoms Status: Acute Assessment and Plan: 11/21/23: * Continue Flomax 11/22/23: * No change to current treatment (6) 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 Workup in the hospital included chest x-ray which shows bilateral hyperinflation, no acute cardiopulmonary disease. KUB showed left urethral stent in expected position, possib
--- NOTE | 2023-11-22 07:13 | PM.IMPN ---
Progress Note: A&P Assessment and Plan (1) Sepsis: Qualifiers: Sepsis acute organ dysfunction status: without acute organ dysfunction Sepsis type: Escherichia coli Qualified Code(s): A41.51 - Sepsis due to Escherichia coli [E. coli] Code(s): A41.9 - Sepsis, unspecified organism Status: Acute Assessment and Plan: 11/21/23: Meeting sepsis criteria with an initial temperature of 102.2?, initial heart rate of 107, white blood cell count 18.8, source infection UTI Patient was given 2700 mL normal saline while in the ED Blood and urine cultures were obtained and are pending started on cefepime 2 g will continue Lactic acid 1.1 11/22/23: T-max 102.8? overnight White blood cell count down to 12.2 Blood culture showing no growth on preliminary read Urine cultures still pending Continue with cefepime 2 g (2) Urinary tract infection: Code(s): N39.0 - Urinary tract infection, site not specified Status: Acute Assessment and Plan: 11/20/23: UA showing 3+ protein, 3+ ketones, 3+ urine blood, 3+ leukocytes, greater 100 urine RBCs, greater than 100 urine wbc's, urine bacteria 4+ Urine and blood culture is pending Continue with cefepime 11/22/23: Blood culture showing no growth on preliminary read Urine cultures are still pending Continue with cefepime 2 g (3) Left ureteral calculus: Code(s): N20.1 - Calculus of ureter Status: Acute Assessment and Plan: 11/21/23: KUB showing left urethral stent in expected position, possible 7 mm left distal ureteral stone CT of the abdomen pelvis showing cystitis, left ureteral stent in good position, 8 mm distal left ureteral stone, no hydronephrosis, Shey ureteral stranding representing inflammation. Urology was consulted Will touch base with Dr. Medrano and see if we need to hold his Eliquis for now and if he plans on taking the patient for cystoscopy. Continue cefepime for urinary tract infection Urine and blood cultures are pending Continue Flomax 11/22/23: No change (4) Deep venous thrombosis of left peroneal vein: Onset Date: 10/2023 Code(s): I82.452 - Acute embolism and thrombosis of left peroneal vein Status: Acute Assessment and Plan: 11/21/23: Patient recently had a venous Doppler study on 10/30/2023 showing thrombus in the left peroneal vein was started on Eliquis Continue Eliquis 11/22/23: No change to current treatment plan (5) Benign prostatic hyperplasia: Qualifiers: Lower urinary tract symptom detail: urinary hesitancy Lower urinary tract symptom presence: symptoms present Qualified Code(s): N40.1 - Benign prostatic hyperplasia with lower urinary tract symptoms; R39.11 - Hesitancy of micturition Code(s): N40.0 - Benign prostatic hyperplasia without lower urinary tract symptoms Status: Acute Assessment and Plan: 11/21/23: Continue Flomax 11/22/23: No change to current treatment (6) 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 Workup in the hospital included chest x-ray which shows bilateral hyperinflation, no acute cardiopulmonary disease. KUB showed left urethral stent in expected position, possible 7 mm left distal ureteral stone. CT of the abdomen and pelvis showed cystitis versus bladder wall thickening from chronic outlet obstruction, left urethral stent in good position, 8 mm distal left ureteral stone, no hydronephrosis, periurethral stranding representing inflammatory change. Initial labs showing a white blood cell count of 18.8, hemoglobin 12.5, PTT 38.7, INR 1.3, lactate 1.1, liver enzymes are normal, C reactive protein is 8.6. UA w
[2023-11-22] MEDS: POTASSIUM CHLORIDE 20 MEQ ER TABLET 40 MEQ PO (09:44)
[2023-11-22] MEDS: DOCUSATE SODIUM 100 MG CAPSULE PO ×4 (09:45→21:45)
[2023-11-22] MEDS: BACLOFEN 10 MG TABLET 20 MG PO ×4 (09:45→21:45)
[2023-11-22] MEDS: ASCORBIC ACID 500 MG TABLET PO (09:45)
[2023-11-22] MEDS: APIXABAN 5 MG TABLET PO ×2 (09:45→21:45)
[2023-11-22] MEDS: TAMSULOSIN HCL 0.4 MG CAPSULE PO (09:45)
[2023-11-22] MEDS: diazePAM (*CRX) 5 MG TABLET PO ×2 (12:29→21:45)
[2023-11-23 00:41] VITALS: TEMP 37.2
[2023-11-23 05:10] LABS: Basophils Percent Auto 0.3 % (0.2-1.2); Eosinophils Absolute Auto 0.1 K/mm3 (0-0.3); Hematocrit 36.1 % (42.0-52.0); Hemoglobin 11.8 g/dL (14.0-18.0); Immature Granulocyte Absolute 0.04 K/mm3 (0.00-0.031); Immature Granulocyte Percent A 0.5 % (0-0.5); Lymphocytes Absolute Auto 1.69 K/mm3 (0.9-3.2); Lymphocytes Percent Auto 21.9 % (18.3-44.2); Mean Corpuscular HGB Conc 32.7 g/dl (32-36); Mean Corpuscular Hemoglobin 29.1 pg (26-34); Mean Corpuscular Volume 88.9 fl (80-100); Mean Platelet Volume 10.1 fl (7.4-10.4); Monocytes Absolute Auto 0.8 K/mm3 (0.1-0.6); Monocytes Percent Auto 10.2 % (2.6-8.5); Neutrophils Absolute Auto 5.1 K/mm3 (1.3-6.7); Neutrophils Percent Auto 66.1 % (45.5-73.1); Platelet Count Result 219 k/mm3 (150-375); Red Blood Count 4.06 M/mm3 (4.6-6.20); Red Cell Distribution Width 14.1 % (11.5-14.5); White Blood Count 7.7 K/mm3 (4.5-10.0)
[2023-11-23 05:28] LABS: Alanine Aminotransferase 35 U/L (6-50); Albumin Level 3.3 g/dL (3.5-5.1); Alkaline Phosphatase 104 U/L (38-126); Anion Gap 3 mmol/L (4-12); Aspartate Amino Transferase 42 U/L (17-59); Bilirubin,Total 0.4 mg/dL (0.2-1.3); Blood Urea Nitrogen 6 mg/dL (9-20); Calcium 8.3 mg/dL (8.4-10.2); Carbon Dioxide 25 mmol/L (22-30); Chloride 110 mmol/L (98-107); Estimated CRCL calculation 247 ml/min; Estimated Glomerular Filt Rate > 60; Glucose 97 mg/dL (65-110); Potassium 3.5 mmol/L (3.4-5.0); Sodium 138 mmol/L (137-145)
[2023-11-23 06:00] VITALS: BP 133/78; PULSE 92; RESP 21; TEMP 37.1; O2SAT 100
[2023-11-23] MEDS: CEFEPIME 2 GM/NS 50 ML 2 GM/50 ML BAG IVPB (06:20)
--- NOTE | 2023-11-23 07:33 | P.PNIM_ITS ---
Progress Note: A&P Assessment and Plan (1) Sepsis: Qualifiers: Sepsis acute organ dysfunction status: without acute organ dysfunction Sepsis type: Escherichia coli Qualified Code(s): A41.51 - Sepsis due to Esch erichia coli [E. coli] Code(s): A41.9 - Sepsis, unspecified organism Status: Acute Assessment and Plan: 11/21/23: * Meeting sepsis criteria with an initial temperature of 102.2?, initial heart rate of 107, white blood cell count 18.8, source infection UTI * Patient was given 2700 mL normal saline while in the ED * Blood and urine cultures were obtained and are pending * started on cefepime 2 g will continue * Lactic acid 1.1 11/22/23: * T-max 102.8? overnight * White blood cell count down to 12.2 * Blood culture showing no growth on preliminary read * Urine cultures still pending * Continue with cefepime 2 g 11/23/23: * White blood cell count down to 7.7 today * Blood culture showing no growth on preliminary read * Urine culture showing Pseudomonas aeruginosa the Enterococcus species on preliminary read * Switch antibiotic coverage to Zosyn for the Enterococcus species * T-max overnight was 101 (2) Urinary tract infection: Code(s): N39.0 - Urinary tract infection, site not specified Status: Acute Assessment and Plan: 11/20/23: * UA showing 3+ protein, 3+ ketones, 3+ urine blood, 3+ leukocytes, greater 100 urine RBCs, greater than 100 urine wbc's, urine bacteria 4+ * Urine and blood culture is pending * Continue with cefepime 11/22/23: * Blood culture showing no growth on preliminary read * Urine cultures are still pending * Continue with cefepime 2 g 11/23/23: * Blood culture showing no growth on preliminary read * Urine culture showing Pseudomonas aeruginosa the Enterococcus species on preliminary read * Antibiotics switched to Zosyn (3) Left ureteral calculus: Code(s): N20.1 - Calculus of ureter Status: Acute Assessment and Plan: 11/21/23: * KUB showing left urethral stent in expected position, possible 7 mm left distal ureteral stone * CT of the abdomen pelvis showing cystitis, left ureteral stent in good position, 8 mm distal left ureteral stone, no hydronephrosis, Shey ureteral stranding representing inflammation. * Urology was consulted * Will touch base with Dr. Medrano and see if we need to hold his Eliquis for now and if he plans on taking the patient for cystoscopy. * Continue cefepime for urinary tract infection * Urine and blood cultures are pending * Continue Flomax 11/22/23: * No change 11/23/23: * Urology plans for cystoscopy tomorrow around noon * Patient continues with Martinez catheter * Continue with Flomax (4) Deep venous thrombosis of left peroneal vein: Onset Date: 10/2023 Code(s): I82.452 - Acute embolism and thrombosis of left peroneal vein Status: Acute Assessment and Plan: 11/21/23: * Patient recently had a venous Doppler study on 10/30/2023 showing thrombus in the left peroneal vein was started on Eliquis * Continue Eliquis 11/22/23: * No change to current treatment plan (5) Benign prostatic hyperplasia: Qualifiers: Lower urinary tract symptom detail: urinary hesitancy Lower urinary tract symptom presence: symptoms present Qualified Code(s): N40.1 - Benign prostatic hyperplasia with lower urinary tract symptoms; R39.11 - Hesitancy of micturition Code(s): N40.0 - Benign prostatic hyperplasia without lower urinary tract symptoms Status: Acute Assessment and Plan: 11/21/23:
--- NOTE | 2023-11-23 07:33 | PM.IMPN ---
Progress Note: A&P Assessment and Plan (1) Sepsis: Qualifiers: Sepsis acute organ dysfunction status: without acute organ dysfunction Sepsis type: Escherichia coli Qualified Code(s): A41.51 - Sepsis due to Escherichia coli [E. coli] Code(s): A41.9 - Sepsis, unspecified organism Status: Acute Assessment and Plan: 11/21/23: Meeting sepsis criteria with an initial temperature of 102.2?, initial heart rate of 107, white blood cell count 18.8, source infection UTI Patient was given 2700 mL normal saline while in the ED Blood and urine cultures were obtained and are pending started on cefepime 2 g will continue Lactic acid 1.1 11/22/23: T-max 102.8? overnight White blood cell count down to 12.2 Blood culture showing no growth on preliminary read Urine cultures still pending Continue with cefepime 2 g 11/23/23: White blood cell count down to 7.7 today Blood culture showing no growth on preliminary read Urine culture showing Pseudomonas aeruginosa the Enterococcus species on preliminary read Switch antibiotic coverage to Zosyn for the Enterococcus species T-max overnight was 101 (2) Urinary tract infection: Code(s): N39.0 - Urinary tract infection, site not specified Status: Acute Assessment and Plan: 11/20/23: UA showing 3+ protein, 3+ ketones, 3+ urine blood, 3+ leukocytes, greater 100 urine RBCs, greater than 100 urine wbc's, urine bacteria 4+ Urine and blood culture is pending Continue with cefepime 11/22/23: Blood culture showing no growth on preliminary read Urine cultures are still pending Continue with cefepime 2 g 11/23/23: Blood culture showing no growth on preliminary read Urine culture showing Pseudomonas aeruginosa the Enterococcus species on preliminary read Antibiotics switched to Zosyn (3) Left ureteral calculus: Code(s): N20.1 - Calculus of ureter Status: Acute Assessment and Plan: 11/21/23: KUB showing left urethral stent in expected position, possible 7 mm left distal ureteral stone CT of the abdomen pelvis showing cystitis, left ureteral stent in good position, 8 mm distal left ureteral stone, no hydronephrosis, Shey ureteral stranding representing inflammation. Urology was consulted Will touch base with Dr. Medrano and see if we need to hold his Eliquis for now and if he plans on taking the patient for cystoscopy. Continue cefepime for urinary tract infection Urine and blood cultures are pending Continue Flomax 11/22/23: No change 11/23/23: Urology plans for cystoscopy tomorrow around noon Patient continues with Martinez catheter Continue with Flomax (4) Deep venous thrombosis of left peroneal vein: Onset Date: 10/2023 Code(s): I82.452 - Acute embolism and thrombosis of left peroneal vein Status: Acute Assessment and Plan: 11/21/23: Patient recently had a venous Doppler study on 10/30/2023 showing thrombus in the left peroneal vein was started on Eliquis Continue Eliquis 11/22/23: No change to current treatment plan (5) Benign prostatic hyperplasia: Qualifiers: Lower urinary tract symptom detail: urinary hesitancy Lower urinary tract symptom presence: symptoms present Qualified Code(s): N40.1 - Benign prostatic hyperplasia with lower urinary tract symptoms; R39.11 - Hesitancy of micturition Code(s): N40.0 - Benign prostatic hyperplasia without lower urinary tract symptoms Status: Acute Assessment and Plan: 11/21/23: Continue Flomax 11/22/23: No change to current treatment (6) 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 Workup in the hospital incl
[2023-11-23] MEDS: APIXABAN 5 MG TABLET PO ×2 (10:40→21:19)
[2023-11-23] MEDS: TAMSULOSIN HCL 0.4 MG CAPSULE PO (10:40)
[2023-11-23] MEDS: ASCORBIC ACID 500 MG TABLET PO (10:40)
[2023-11-23] MEDS: BACLOFEN 10 MG TABLET 20 MG PO ×4 (10:40→21:19)
[2023-11-23] MEDS: DOCUSATE SODIUM 100 MG CAPSULE PO ×4 (10:40→21:19)
[2023-11-23 12:50] VITALS: BP 115/80; PULSE 85; RESP 21; TEMP 36.7; O2SAT 99
[2023-11-23] MEDS: PIPERACILLN/TAZ 3.375GM/NS50ML 3.375 GM/50 ML BAG IVPB ×3 (13:32→23:21)
[2023-11-23] MEDS: diazePAM (*CRX) 5 MG TABLET PO ×2 (13:32→21:19)
[2023-11-23 21:52] VITALS: O2SAT 99
[2023-11-23 22:13] VITALS: BP 121/81; PULSE 102; RESP 20; TEMP 37.2; O2SAT 99
[2023-11-24] VITALS (12 sets, daily range): BP systolic 99–161; BP diastolic 62–109; PULSE 66–98; RESP 13–21; TEMP 36.6–37.2; O2SAT 99–100
[2023-11-24] MEDS: PIPERACILLN/TAZ 3.375GM/NS50ML 3.375 GM/50 ML BAG IVPB (05:49)
[2023-11-24 06:28] LABS: Basophils Percent Auto 0.3 % (0.2-1.2); Eosinophils Absolute Auto 0.1 K/mm3 (0-0.3); Eosinophils Percent Auto 1.9 % (0-4.4); Hematocrit 36.6 % (42.0-52.0); Hemoglobin 11.6 g/dL (14.0-18.0); Immature Granulocyte Absolute 0.03 K/mm3 (0.00-0.031); Immature Granulocyte Percent A 0.4 % (0-0.5); Lymphocytes Absolute Auto 1.46 K/mm3 (0.9-3.2); Lymphocytes Percent Auto 20.2 % (18.3-44.2); Mean Corpuscular HGB Conc 31.7 g/dl (32-36); Mean Corpuscular Hemoglobin 28.4 pg (26-34); Mean Corpuscular Volume 89.7 fl (80-100); Mean Platelet Volume 9.9 fl (7.4-10.4); Monocytes Absolute Auto 0.7 K/mm3 (0.1-0.6); Monocytes Percent Auto 9.5 % (2.6-8.5); Neutrophils Absolute Auto 4.9 K/mm3 (1.3-6.7); Neutrophils Percent Auto 67.7 % (45.5-73.1); Platelet Count Result 234 k/mm3 (150-375); Red Blood Count 4.08 M/mm3 (4.6-6.20); Red Cell Distribution Width 14.1 % (11.5-14.5); White Blood Count 7.2 K/mm3 (4.5-10.0)
--- NOTE | 2023-11-24 06:29 | WPDHPUPDATE1 ---
History and Physical Update Update Date/Time: 11/24/23 06:29 History and Physical has been reviewed, including an updated exam of the patient. There are NO changes in the patient's condition. Risks, benefits, and alternatives have been discussed and questions answered. Patient agrees to proceed with procedure.
[2023-11-24 06:36] LABS: Alanine Aminotransferase 46 U/L (6-50); Albumin Level 3.4 g/dL (3.5-5.1); Alkaline Phosphatase 102 U/L (38-126); Anion Gap 5 mmol/L (4-12); Aspartate Amino Transferase 46 U/L (17-59); Bilirubin,Total 0.4 mg/dL (0.2-1.3); Blood Urea Nitrogen 8 mg/dL (9-20); Calcium 8.4 mg/dL (8.4-10.2); Carbon Dioxide 25 mmol/L (22-30); Chloride 110 mmol/L (98-107); Estimated CRCL calculation 159 ml/min; Estimated Glomerular Filt Rate > 60; Glucose 101 mg/dL (65-110); Potassium 3.6 mmol/L (3.4-5.0); Sodium 140 mmol/L (137-145)
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
[2023-11-24] MEDS: LACTATED RINGERS 1,000 ML 30 ML IV CONT (10:00)
[2023-11-24] MEDS: LIDOCAINE HCL 2% GEL UROJET 10 ML PKG MUCOUS MEM (11:30)
--- NOTE | 2023-11-24 12:12 | W.PM.PROC2 ---
Procedure Note - Detailed Date of Procedure 11/24/23 Pre-op Diagnosis Left ureteral stone Post-op Diagnosis Same Procedure Performed Cystoscopy, left ureteral stent removal, left ureteroscopy with laser lithotripsy stone extraction and stent replacement Surgeon Rick Medrano MD Anesthesia General Description of Procedure Patient is brought to the operative suite was prepped draped in routine sterile fashion while in dorsal lithotomy position after the uneventful induction of a general anesthetic. Cystoscopy was undertaken with a 19 F rigid cystoscope. The indwelling stent is grasped and brought to the external urethral meatus. A 0.035 in glidewire was advanced through it into the left renal pelvis. The distal ureter was dilated with an 8 F 10 F dilator and ureteroscopy was undertaken with tapered semi-rigid ureteral scope. He has a 8 mm left mid ureteral stone. A 200 micron Philipp laser fiber is used to fracture the stone into small pieces, all of which were removed with a 1.9 F disposable stone basket. I positioned a 4.8 F variable length stent with proximal coil in the renal pelvis and distal coil in the bladder. I attached the string of the stent to a Martinez catheter (16 F). Urine Output 750 Drains Yes Packing No Pathology Yes Complications No immediate complications
[2023-11-24] MEDS: TAMSULOSIN HCL 0.4 MG CAPSULE PO (13:08)
[2023-11-24] MEDS: DOCUSATE SODIUM 100 MG CAPSULE PO ×2 (13:08→16:46)
[2023-11-24] MEDS: AMOXICILLIN 500 MG CAPSULE PO (13:08)
[2023-11-24] MEDS: APIXABAN 5 MG TABLET PO (13:08)
[2023-11-24] MEDS: BACLOFEN 10 MG TABLET 20 MG PO ×2 (13:08→16:46)
[2023-11-24] MEDS: ASCORBIC ACID 500 MG TABLET PO (13:08)
[2023-11-24] MEDS: CIPROFLOXACIN 500 MG TAB PO (13:09)
[2023-11-24] MEDS: diazePAM (*CRX) 5 MG TABLET PO (13:10)
--- NOTE | 2023-11-24 16:09 | PM.DS ---
DS: Admitting Diagnosis Discharge Date 11/24/23 Admitting Diagnosis Urinary tract infection Left ureteral calculus Hypotension DVT BPH Quadriplegia following spinal cord injury DS: Discharge Diagnosis Discharge Diagnosis (1) Sepsis: Qualifiers: Sepsis type: Escherichia coli Sepsis acute organ dysfunction status: without acute organ dysfunction Qualified Code(s): A41.51 - Sepsis due to Escherichia coli [E. coli] Code(s): A41.9 - Sepsis, unspecified organism Status: Acute (2) Urinary tract infection: Code(s): N39.0 - Urinary tract infection, site not specified Status: Acute (3) Left ureteral calculus: Code(s): N20.1 - Calculus of ureter Status: Acute (4) Deep venous thrombosis of left peroneal vein: Onset Date: 10/2023 Code(s): I82.452 - Acute embolism and thrombosis of left peroneal vein Status: Acute (5) Benign prostatic hyperplasia: Qualifiers: Lower urinary tract symptom presence: symptoms present Lower urinary tract symptom detail: urinary hesitancy Qualified Code(s): N40.1 - Benign prostatic hyperplasia with lower urinary tract symptoms; R39.11 - Hesitancy of micturition Code(s): N40.0 - Benign prostatic hyperplasia without lower urinary tract symptoms Status: Acute (6) Quadriplegia following spinal cord injury: Status: Chronic DS: Summary Hospital Course Reason for hospitalization: Urinary tract infection Left ureteral calculus Hypotension DVT BPH Quadriplegia following spinal cord injury Hospital Course: 11/21/23: This is a 53-year-old male who presented to the hospital on 11/20/2023 with complaints of flank pain and fever.? Workup in the hospital included chest x-ray which shows bilateral hyperinflation, no acute cardiopulmonary disease.? KUB showed left urethral stent in expected position, possible 7 mm left distal ureteral stone.? CT of the abdomen and pelvis showed cystitis versus bladder wall thickening from chronic outlet obstruction, left urethral stent in good position, 8 mm distal left ureteral stone, no hydronephrosis, periurethral stranding representing inflammatory change.? Initial labs showing a white blood cell count of 18.8, hemoglobin 12.5, PTT 38.7, INR 1.3, lactate 1.1, liver enzymes are normal, C reactive protein is 8.6.? UA was obtained and showed 3+ urine protein, 3+ urine ketones, 3+ urine blood, 3+ leukocytes, greater than 100 urine RBCs, greater than 100 urine wbc's PCs, 4+ bacteria.? Blood and urine cultures were obtained and are pending.? Patient was given pain medication, 2700 ml a normal saline, and started on cefepime.? Patient meeting sepsis criteria with temperature of 102.2?, pulse 107, elevated white blood cell count, known source of infection.? Urology was consulted.? On examination today patient is a alert and oriented x3, lying in the bed.? He does have gross motor use 2 bilateral upper extremity but his paralyzed from chest down.? He states he has no feeling pain whenever he has a stone or a urinary tract infection however he did notice chills/rigors and came in for the evaluation.? He denies any nausea, vomiting, diarrhea, abdominal pain, chest pain, shortness a breath.? He does still have some chills and fever today.? We will continue with cefepime at this time. 11/22/23: Patient reported fevers overnight the chills otherwise no other complaints.? Labs today show a white blood cell count of 12.2, hemoglobin 11.4, sodium 134, potassium 3.1, bicarb level 21.? Blood culture showing no growth to date on preliminary read.? Urine culture is still pending.? Will continue with cefepime. 11/23/23: Labs today show a hemoglobin of 11.8 otherwise unremarkable.? Blood cultures are negative to date on preliminary read.? Urine culture showing Pseudomonas aeruginosa Enterococcus species on preliminary read.? We will change the cefepime over to Odell albert for coverage of the Enterococcus species.? Plan is for him to go
--- NOTE | 2023-11-25 08:12 | WPDANESPN ---
Anes - Prog Note Post-Op Date/Time: 11/25/23 08:12 Vital Signs: Last Vital Signs Temp 36.9 C 11/24/23 14:45 Pulse 98 11/24/23 14:45 Resp 18 11/24/23 14:45 BP 102/62 11/24/23 14:45 Pulse Ox 100 11/24/23 14:45 O2 Del Method Room Air 11/24/23 12:42 O2 Flow Rate 8 11/24/23 12:08 FiO2 21 11/24/23 08:21 Pain Score (VAS): 0 Laboratory Tests 11/24/23 05:13 11/24/23 05:13 Microbiology 11/20/23 15:08 Urine Clean Catch Urine Culture - Final Pseudomonas aeruginosa Enterococcus species Patient Feedback: Patient satisfied with anesthetic care.
== END 2023-11-24 18:00 | disposition home or self-care (01) | DRG 659 ==
LOC: ANHED 14:34 → ANH3MEDSUR 17:52 → ANH2MED 19:13
PROVIDERS: Physician Assistant; Urology; Admitting Provider Internal Medicine; Emergency Provider Emergency Medicine; PCP Family Medicine; Visit Provider Nurse Practitioner Acute Care
PROC: 0T778DZ Dilation of Left Ureter with Intraluminal Device, Via Natural or Artificial Opening Endoscopic (ICD-10-PCS; CPT 52352; principal; 2023-11-24 11:30)
DX: T83.518A Infection and inflammatory reaction due to other urinary catheter, initial encounter (principal); A41.9 Sepsis, unspecified organism; G82.54 Quadriplegia, C5-C7 incomplete; N20.1 Calculus of ureter; I95.9 Hypotension, unspecified; N40.0 Benign prostatic hyperplasia without lower urinary tract symptoms; T14.8XXS Other injury of unspecified body region, sequela; S14.109S Unspecified injury at unspecified level of cervical spinal cord, sequela; Z79.01 Long term (current) use of anticoagulants; Z79.82 Long term (current) use of aspirin; Z86.718 Personal history of other venous thrombosis and embolism
CPT/HCPCS: 36415; 71046; 74018; 74176; 80048; 80053; 81001; 82365; 83605; 83735; 85025; 85610; 85730; 86140; 87040; 87086; 87181; 87186; 88300; 96365; 96366; 99285; A9270; C1758; C1769; C2617; J0692; J1100; J2405; J2543; J2704; J7030; J7120; Q9966

== ENCOUNTER 2024-04-19 01:27 | Day surgery (SDC) | payer BC, MEDICARE, SELFPAY ==
[2024-04-13 10:47] VITALS: BMI 26.2
--- NOTE | 2024-04-13 10:54 | PC.NURSE ---
Report to the Outpatient Waiting Room, entrance under the green pavilion located off [facility], at time _0630_ on date _04/19/24_. Planned Procedure Time: __829__.? Time changes happen often and if your time is changed the preop area will call you the afternoon before. - You and your visitor will be asked to self-screen and do not enter if you have any COVID symptoms. Please call surgeon if you need to reschedule. - A mask is optional within the hospital at this time. Patients may have clear liquids (water, carbonated beverages, clear teas, apple juice) until 3 hours prior to surgery with a maximum of 20 ounces. - No food from midnight until time of surgery and no smoking - Infants may have breast milk until 4 hours before surgery, formula 6 hours prior to surgery. - Children will be allowed to drink immediately following surgery.? If applicable, please bring a bottle or sippy cup to assist with drinking. Juice, water, soda, and popsicles are readily available.? For infants on formula, please bring formula the day of surgery.? Pacifiers are allowed. Take only the following medications with a SIP of water on the morning of surgery: ___BACLOFEN, TAMSILOSIN AND DIAZEPAM IF NEEDED DO NOT STOP ANY OF YOUR OTHER PRESCRIPTION MEDICATIONS PRIOR TO SURGERY EXCEPT THE FOLLOWING Medications to discontinue per physician __ELEQUIS 04/16/24 PER MD , STOP VITAMIN C 04/16/24 Date to take last dose Please no make-up, nail citizen of [place], hairspray, perfume, deodorant, or body powder the day of surgery.? No jewelry (including any body piercings) or valuables the day of surgery, leave them at home.? Please take a shower or bath the night before, or the morning of, surgery with an antibacterial soap.? Wear comfortable, loose fitting clothing.? Children are encouraged to wear pajamas. - Jewelry must be removed prior to entering the operating room.? Rings and piercings that are not removed may be cut off. - The hospital will not accept responsibility for valuables.? - Please leave all valuables, including medications, at home the day of surgery. If you are going home after surgery, a licensed local tanker truck driver must drive you home.? - NO public transportation without another adult if you receive anesthesia. - We recommend that an adult stay with you for 24 hours following discharge. - We also recommend that you do not drive, make important decision, drink alcoholic beverages, or take any drugs that were not prescribed by your health care provider for at least 24 hours after your discharge time. For Pediatric surgeries, we recommend two adults accompany the child home. Follow any additional instructions given to you from your surgeon. Telephone instructions given to _PATIENT___and asked if any additional questions and then verbalized understanding. Patient advised to call surgeon office or pre surgery nurse liaison [phone] if any additional questions.
--- NOTE | ~2024-04-19 | XR_ITS ---
EXAMINATION: XR retrograde pyelo w/stent LT DATE: 04/19/2024 08:20 INDICATION: Left internal ureteral stent placement TECHNIQUE: Fluoroscopic images from a left internal ureteral stent placement are submitted for review . 23 seconds of fluoroscopy time. FINDINGS: There is a left double-J internal ureteral stent projecting in expected position, with proximal [place] loop at the level of the renal pelvis and distal loop in the pelvis within the bladder lumen. IMPRESSION: 1. Left internal ureteral stent placement. Please refer to real-time procedural findings for detail s. Reviewed, dictated and finalized at location B. IMPRESSION: 1. Left internal ureteral stent placement. Please refer to real-time procedur al findings for details.
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
--- NOTE | 2024-04-19 07:20 | WPDHPUPDATE1 ---
History and Physical Update Update Date/Time: 04/19/24 07:20 Procedure will include stone extraction History and Physical has been reviewed, including an updated exam of the patient. There are NO changes in the patient's condition. Risks, benefits, and alternatives have been discussed and questions answered. Patient agrees to proceed with procedure.
[2024-04-19] MEDS: ceFAZolin 2 GM/D5W 50 ML 2 GM/50 ML BAG IVPB (07:25)
[2024-04-19] MEDS: LACTATED RINGERS 1,000 ML 30 ML IV CONT (07:30)
[2024-04-19 07:31] VITALS: BMI 23.3
[2024-04-19] MEDS: LIDOCAINE HCL 2% GEL UROJET 10 ML PKG MUCOUS MEM (08:11)
--- NOTE | 2024-04-19 08:15 | W.PM.PROC2 ---
Procedure Note - Detailed Date of Procedure 04/19/24 Pre-op Diagnosis Left kidney stones Post-op Diagnosis Same Procedure Performed Cystoscopy couple left ureteroscopy with laser lithotripsy, stone extraction more retrograde pyelogram and ureteral stent placement Surgeon Rick Medrano MD Anesthesia General Description of Procedure patient brought to the operative suite was prepped draped in routine sterile fashion while in dorsal lithotomy position after the uneventful induction of a general anesthetic. Cystoscopy was undertaken with a 19 F rigid cystoscope. He has no urethral strictures. Bladder shows slight trabeculation but there was no intravesical foreign body or neoplasm. A 0.035 in glidewire was advanced into his left renal pelvis. The distal ureter was dilated with an 8 F 10 F dilator and an 11 F/ 13 F ureteral access sheath was placed. Flexible ureteroscopy was undertaken with a 7.5 F digital flexible ureteral scope. He has a 8-10 mm stone in the left upper pole and another 1 in the lower pole. Using a 200 micron Philipp laser fiber the stones were dusted. Larger fragments ( anything estimated to be over 2 mm) were extracted with a disposable stone basket. Retrograde pyelogram was obtained to confirm appropriate positioning of a 4.8 F variable length left ureteral stent. Pathology None sent Complications No immediate complications Condition Stable Disposition PACU
[2024-04-19 08:19] VITALS: BP 153/92; PULSE 62; RESP 15; TEMP 36.3; O2SAT 98
[2024-04-19 08:21] VITALS: BP 117/84; PULSE 73; RESP 18; TEMP 36.3; O2SAT 98
[2024-04-19 08:30] VITALS: BP 150/100; PULSE 65; RESP 18; O2SAT 98
[2024-04-19 08:45] VITALS: BP 154/93; PULSE 57; RESP 18; O2SAT 98
[2024-04-19 08:48] VITALS: BP 130/77; PULSE 50; RESP 18
[2024-04-19 09:15] VITALS: BP 134/92; PULSE 55; RESP 18
== END 2024-04-19 09:43 | disposition home or self-care (01) ==
PROVIDERS: PCP Family Medicine; Visit Provider Urology
PROC: (CPT 52352; principal; 2024-04-19 08:30)
DX: N20.1 Calculus of ureter (principal); N40.0 Benign prostatic hyperplasia without lower urinary tract symptoms; G82.50 Quadriplegia, unspecified; Z79.01 Long term (current) use of anticoagulants; Z98.890 Other specified postprocedural states; Z98.1 Arthrodesis status; Z96.0 Presence of urogenital implants; Z85.828 Personal history of other malignant neoplasm of skin; Z80.0 Family history of malignant neoplasm of digestive organs; Z82.49 Family history of ischemic heart disease and other diseases of the circulatory system
CPT/HCPCS: 52356; 74420; 82365; 88300; C1769; C1894; C2617; J0690; J1100; J2250; J2405; J2704; J3010; J7120; Q9966

== ENCOUNTER 2024-05-15 08:27 | Outpatient (CLI) | payer BC, MEDICARE, SELFPAY ==
--- NOTE | ~2024-05-15 | US_ITS ---
EXAMINATION:US venous doppler LE LT INDICATION:Acute embolism and thrombosis of the left leg TECHNIQUE: Multiple grayscale, color flow and Doppler images of the left lower extremity deep venous systems were obtained and reviewed. COMPARISON:Ultrasound dated 10/30/2023 FINDINGS: The common femoral, superficial femoral and popliteal veins demonstrate normal respiratory variation, augmentation and compressibility. Color flow is also seen within the posterior tibial, pe roneal, greater saphenous and profunda veins. IMPRESSION: 1: No lower extremity deep venous thrombosis. Reviewed, dictated and finalized at location B.
== END 2024-05-15 08:28 | disposition home or self-care (01) ==
PROVIDERS: PCP Family Medicine; Visit Provider Family Medicine
DX: I82.452 Acute embolism and thrombosis of left peroneal vein (principal)
CPT/HCPCS: 93971

== ENCOUNTER 2024-05-24 11:15 | Outpatient (CLI) | payer BC, MEDICARE, SELFPAY ==
[2024-05-24 14:48] LABS: Anion Gap 8 mmol/L (4-12); Blood Urea Nitrogen 13 mg/dL (9-20); Carbon Dioxide 28 mmol/L (22-30); Chloride 103 mmol/L (98-107); Cholesterol 167 mg/dL (0-200); Estimated Glomerular Filt Rate > 60; Glucose 85 mg/dL (65-110); HDL Direct 41 mg/dL; Potassium 4.5 mmol/L (3.4-5.0); Sodium 139 mmol/L (137-145); Triglycerides 70 mg/dL (<150)
[2024-05-24 15:00] LABS: LDL Cholesterol Direct 89 mg/dL
== END 2024-05-24 11:16 | disposition home or self-care (01) ==
PROVIDERS: PCP Family Medicine; Visit Provider Family Medicine
DX: Z79.899 Other long term (current) drug therapy (principal)
CPT/HCPCS: 36415; 80048; 80061

== ENCOUNTER 2024-08-27 08:59 | Outpatient (CLI) | payer BC, MEDICARE, SELFPAY ==
--- NOTE | ~2024-08-27 | XR_ITS ---
XR abdomen/kub 1V Ordering provider: Rick Medrano MD History: . KIDNEY STONE ON LEFT SIDE F/U SURGERY . Comparison: None. FINDINGS: BOWEL: Nonobstructive bowel gas pattern. ORGANOMEGALY: Slightly lobulated outline of the liver. Further evaluation advised. SIGNIFICANT PATHOLOGIC CALCIFICATIONS: Stones are seen in the left kidney area. OTHER: No free air is seen under the diaphragm. Degenerative the spine. Bilateral hip osteoarthritic changes. Bilateral sacroiliacs. IMPRESSION: NO ACUTE ABDOMINAL FINDINGS. Left kidney stones. Reviewed, dictated and finalized at location A. [employer]
== END 2024-08-27 09:00 | disposition home or self-care (01) ==
PROVIDERS: PCP Family Medicine; Visit Provider Urology
DX: N20.0 Calculus of kidney (principal)
CPT/HCPCS: 74018

== ENCOUNTER 2024-11-21 10:59 | Outpatient (CLI) | payer BC, MEDICARE, SELFPAY ==
--- OUTSIDE RECORDS SUMMARY | 2024-11-21 12:44 | XMS_ITS | Encounter Summary ---
Author Organization [facility] Address [address] [place] [address] Care Team Providers Care Marine Design Engineer Name Role Phone Neri Martínez MD Primary Care Provider [phone] Encounter Details Date Type Department Care Team (Late st Contact Info) Description 06/09/2017 Abstract [facility] CONVERSION [address] [place], [place] [id number] , Generic Conversion, Social History Tobacco Use Types Packs/Day Years Used Date Smoking Tobacco: Never Assessed Sex and Gender Information Value Date Recorded Sex Assigned at Not on file Legal Sex Male 1:58 PM CDT Gender Identity Not on file Sexual Orientation Not on file documented as of this encounter Plan of Treatment Not on file documented as of this encounter Procedures Procedure Name Priority Date/Time Associated Diagnosis Comments FECAL BLOOD FIT SCREEN Routine 06/09/2017 7:37 AM CDT documented in this encounter Results * (ABNORMAL) FECAL BLOOD FIT SCREEN (06/09/2017 7:37 AM CDT) FECAL BLOOD FIT SCRN POSITIVE(A ) NEGATIVE 2017 11:11 AM CDT [facility] STOOL SPECIMEN / Unknown 06/09/2017 7:37 AM CDT 06/09/2017 7:37 AM CDT us Generic Maggy Moya MD BODY FLUIDS AND STOOLS ORDERABLES Final Result [facility] [address] [place] [address], documented in this encounter Visit Diagnoses Not on filedocumented in this encounter Care Teams Marine Design Engineer Relationship Specialty Start Date End Date Neri Martínez MD [address] [place] [address] PCP - General FAMILY PRACTICE 04/26/19 documented as of this encounter
--- OUTSIDE RECORDS SUMMARY | 2024-11-21 12:44 | XMS_ITS | Clinical Summary ---
Author Organization [facility] Address [address] [place] [address] Care Team Providers Care Poultry Feed Supervisor Name Role Phone Neri Martínez MD Primary Care Provider [phone] Social History Tobacco Use Types Packs/Day Years Used Date Smoking Tobacco: Never Assessed Sex and Gender Information Value Date Recorded Sex Assigned at Not on file Legal Sex Male 1:58 PM CDT Gender Identity Not on file Sexual Orientation Not on file Plan of Treatment Health Maintenance Due Date Last Done Comments Colorectal Cancer Screening Colonoscopy (10 Years) 1969 Annual Physical 1972 Hepatitis C 1987 DTaP, Tdap and Td Vaccines ( 1 - Tdap) 1988 Hepatitis B Vaccines (1 of 3 - 19+ 3-dose series) 1988 Zoster Vaccines (1 of 2) 2019 COVID-19 Vaccine (2023-2 5 season) 2024 Meningococcal B Vaccine Aged Out No l onger eligible based on patient's age to complete this topic Meningococcal Vaccine Aged Out No andrey mauricio eligible based on patient's age to complete this topic Pneumococcal Vaccine: Pediat rics (0 to 5 Years) and At-Risk Patients (6 to 64 Years) Aged Out No longer eligible b ased on patient's age to complete this topic RSV Immunizations Under 20 Months Aged Out No longer eligible based on patient's age to complete this topic Care Teams Poultry Feed Supervisor Relationship Specialty Start Date End Date Neri Martínez MD [address] [place] [address] PCP - General FAMILY PRACTICE 04/26/19
--- OUTSIDE RECORDS SUMMARY | 2024-11-21 12:44 | XMS_ITS | Clinical Summary ---
Author Organization [facility] Address [address] [place] [address] Care Team Providers Care Proctologist Name Role Phone Unavailable Primary Care Provider Unavailabl e Immunizations Immunization Administration Dates Next Due Covid-19, Mrna, Lnp-s, PF, 1 00 mcg/0.5 mL Dose (Moderna) 08/19/2021 Social History Tobacco Use Types Packs/Day Years Used Date Smoking Tobacco: Never Assessed Sex and Gender Information Value Date Recorded Sex Assigned at Not on file Legal Sex Male 12:58 PM CERTIFIED SKI PATROLLER Gender Identity Not on file Sexual Orientation Not on file Plan of Treatment Health Maintenance Due Date Last Done Comments Hepatitis C Virus (HCV) Screening 1970 TdaP Immunization 1969 Hepatitis B Immunization (1 of 3 - 19+ 3-dose series) 1988 Colonoscopy 2014 Colorectal Cancer Screening 2014 Cologuard 2019 Immunochemical Fecal Occult Blood 2019 Pneumococcal Immunization (5 0+ years) (1 of 1 - PCV) 2019 Zoster Immunization (1 of 2) 2019 Influenza Immunization (#1) 2024 SARS-COV-2 Immunization (3 - 2023-25 season) 2024 09/21/2021, 08/19/2021 Respiratory Syncytial Virus (RSV) Immunization (Adult) (1 - 1-dose 75+ series) 2044 Meningococcal Immunization (ACWY) Aged Out No longer eligible b ased on patient's age to complete this topic Rotavirus Immunization Aged Out No lo nger eligible based on patient's age to complete this topic
[2024-11-21 19:04] LABS: Basophils Percent Auto 0.3 % (0.2-1.2); Eosinophils Absolute Auto 0.2 K/mm3 (0-0.3); Hematocrit 42.7 % (42.0-52.0); Hemoglobin 13.6 g/dL (14.0-18.0); Immature Granulocyte Absolute 0.02 K/mm3 (0.00-0.031); Immature Granulocyte Percent A 0.3 % (0-0.5); Lymphocytes Absolute Auto 1.52 K/mm3 (0.9-3.2); Lymphocytes Percent Auto 19.4 % (18.3-44.2); Mean Corpuscular HGB Conc 31.9 g/dl (32-36); Mean Corpuscular Hemoglobin 28.6 pg (26-34); Mean Corpuscular Volume 89.9 fl (80-100); Mean Platelet Volume 10.2 fl (7.4-10.4); Monocytes Absolute Auto 0.5 K/mm3 (0.1-0.6); Monocytes Percent Auto 5.7 % (2.6-8.5); Neutrophils Absolute Auto 5.7 K/mm3 (1.3-6.7); Neutrophils Percent Auto 72.3 % (45.5-73.1); Platelet Count Result 264 k/mm3 (150-375); Red Blood Count 4.75 M/mm3 (4.6-6.20); Red Cell Distribution Width 13.5 % (11.5-14.5); White Blood Count 7.8 K/mm3 (4.5-10.0)
[2024-11-21 19:42] LABS: Alanine Aminotransferase 60 U/L (6-50); Albumin Level 4.1 g/dL (3.5-5.1); Alkaline Phosphatase 92 U/L (38-126); Anion Gap 8 mmol/L (4-12); Aspartate Amino Transferase 58 U/L (17-59); Bilirubin,Total 0.5 mg/dL (0.2-1.3); Blood Urea Nitrogen 13 mg/dL (9-20); Carbon Dioxide 26 mmol/L (22-30); Chloride 104 mmol/L (98-107); Cholesterol 162 mg/dL (0-200); Estimated Glomerular Filt Rate > 60; Glucose 66 mg/dL (65-110); HDL Direct 43 mg/dL; Potassium 4.5 mmol/L (3.4-5.0); Sodium 138 mmol/L (137-145); Triglycerides 103 mg/dL (<150)
[2024-11-21 19:54] LABS: LDL Cholesterol Direct 88 mg/dL
[2024-11-21 20:14] LABS: Prostate Specific Antigen 0.9 ng/mL (< OR = 4.0)
== END 2024-11-21 11:00 | disposition home or self-care (01) ==
LOC: ANHGOSHLAB 11:01
PROVIDERS: PCP Family Medicine; Visit Provider Family Medicine
DX: Z00.00 Encounter for general adult medical examination without abnormal findings (principal); Z12.5 Encounter for screening for malignant neoplasm of prostate
CPT/HCPCS: 36415; 80053; 80061; 84153; 85025; G0103

== ENCOUNTER 2025-02-27 13:36 | Outpatient (CLI) | payer BC, MEDICARE, SELFPAY ==
--- NOTE | ~2025-02-27 | XR_ITS ---
XR abdomen/kub 1V 02/27/2025 14:03 Indication: Kidney stone Procedure: KUB Comparison: 08/27/2024 Findings: Bowel gas pattern nonobstructive. Moderate colonic fecal loading. Mild lower thoracic and l umbar spondylosis. Multiple renal stones identified. There is heterotopic ossification adjacent to th e left femur proximally. Impression: 1: Stable left nephrolithiasis allowing for differences of technique. Reviewed, dictated and finalized at location B. Impression: 1: Stable left nephrolithiasis allowing for differences of technique.
--- OUTSIDE RECORDS SUMMARY | 2025-02-27 13:44 | XMS_ITS | Patient Health Record ---
Author Organization 1 OF Farhat jones [facility] Address [address] [facility] [address] [place] [address] Care Team Providers Care Kindergarten Instructional Assistant Name Role Phone ArthurKelly barbosa Primary Care Provider Unavail able Valeria Bowman Unavailable [phone] Allergies Allergen (clinical drug ingredient) Drug/Non Drug Allergy documented on EMR Reaction Allergy Type Onset Date Status Latex Latex Unknown Allergy Active Reason For Referral No Information Medications Medication SIG (Take, Route, Frequency, Duration) Notes Start Date End Date Status diazePAM Active Baclofen Active Aspirin 81 Active Tamsulosin HCl Activ e Medihoney Wound/Burn Dressing - Apply to wound bed daily Topical once daily; Duration: 30 days Active Vitamin C Active Stool Softener Activ e Social History Tobacco Use: Social History Observation Description Date Details (start date - stop date) Never Smoker NA - NA Tobacco Use/Smoking Question Answer Notes Are you a nonsmoker Problems Problem Type SNOMED Code ICD Code Onset Dates Problem Status W/U Status Risk Notes Problem Ulcer of left foot (disorder) (065370192) Ulcer of left foot, limited to breakdown of skin (L97.521) Active confirmed Problem Quadriplegia (64111679) Quadriplegia (G82.50) Active confirmed Plan Of Treatment No Information Insurance Providers Payer Name Payer Address Payer Phone Subscriber Number Group Number Insured Name Patient Relationship to Insured Coverage Start Date Coverage End Date [facility] [address] [place] [address] [id number] Alexandra Isabel Spouse - patient is the spouse of the insured Medicare [address] [facility] [place], [place] [id number] Ge Isabel Self - patient is the insured Medical (General) History Medical History History ICD Code Cancer(basal cell carcinoma on lip), pari javier
--- OUTSIDE RECORDS SUMMARY | 2025-02-27 13:44 | XMS_ITS | Clinical Summary ---
Author Organization [facility] Address [address] [place] [address] Care Team Providers Care Client Partner Name Role Phone Neri Martínez MD Primary Care Provider [phone] Social History Tobacco Use Types Packs/Day Years [...] of 3 - 19+ 3-dose series) 1988 Pneumococcal Vaccine: 50+ Ye ars (1 of 1 - PCV) 2019 Zoster Vaccines (1 of 2) 2019 COVID-19 Vaccine ( - 2023-2 5 season) 2024 Meningococcal B Vaccine Aged Out No l onger eligible based on patient's age to complete this topic Meningococcal Vaccine Aged Out No andrey mauricio eligible based on patient's age to complete this topic RSV Immunizations Under 20 Months Aged Out No longer eligible based on patient's age to complete this topic Care Teams Client Partner Relationship Specialty Start Date End Date Neri Martínez MD [address] [place] [address] PCP - General FAMILY PRACTICE 04/26/19
--- OUTSIDE RECORDS SUMMARY | 2025-02-27 13:44 | XMS_ITS | Encounter Summary ---
Author Organization [facility] Address [address] [place] [address] Care Team Providers Care Senior Linux Unix Engineer Name Role Phone Neri Martínez MD Primary Care Provider [phone] Encounter Details Date Type Department Care Team (Late st Contact Info) Description 06/09/2017 Abstract [facility] CONVERSION [address] [place], [place] [id number] , Generic Conversion, Social History Tobacco Use [...] POSITIVE(A ) NEGATIVE 2017 11:11 AM CDT [facility] STOOL SPECIMEN / Unknown 06/09/2017 7:37 AM CDT 06/09/2017 7:37 AM CDT us Generic Maggy Moya MD BODY FLUIDS AND STOOLS ORDERABLES Final Result [facility] [address] [place] [address], documented in this encounter Visit Diagnoses Not on filedocumented in this encounter Care Teams Senior Linux Unix Engineer Relationship Specialty Start Date End Date Neri Martínez MD [address] [place] [address] PCP - General FAMILY PRACTICE 04/26/19 documented as of this encounter
== END 2025-02-27 13:37 | disposition home or self-care (01) ==
PROVIDERS: PCP Family Medicine; Visit Provider Urology
DX: N20.0 Calculus of kidney (principal)
CPT/HCPCS: 74018

== ENCOUNTER 2025-04-01 00:23 | Day surgery (SDC) | payer BC, MEDICARE, SELFPAY ==
[2025-03-25 14:46] VITALS: BMI 26.4
--- NOTE | 2025-03-25 15:10 | PC.NURSE ---
Spoke with _PATIENT_ regarding medication _ELIQUIS_. _PATIENT_verbalizes understanding that the last dose is to be taken on _03/29/2025_ and the Endoscopist will instruct them when to restart after the procedure.
--- OUTSIDE RECORDS SUMMARY | 2025-04-01 00:25 | XMS_ITS | Clinical Summary ---
Author Organization [facility] Address [address] [place] [address] Care Team Providers Care Cafeteria Cashier Name Role Phone Neri Martínez MD Primary Care Provider [phone] Social History Tobacco Use Types Packs/Day Years [...] age to complete this topic Care Teams Cafeteria Cashier Relationship Specialty Start Date End Date Neri Martínez MD [address] [place] [address] PCP - General FAMILY PRACTICE 04/26/19
--- OUTSIDE RECORDS SUMMARY | 2025-04-01 00:25 | XMS_ITS | Encounter Summary ---
Author Organization [facility] Address [address] [place] [address] Care Team Providers Care Bait Man Name Role Phone Neri Martínez MD Primary Care Provider [phone] Encounter Details Date Type Department Care Team (Late st Contact Info) Description 06/09/2017 Abstract [facility] CONVERSION [address] [place], [place] [id number] , Generic Conversion, Social History Tobacco Use [...] POSITIVE(A ) NEGATIVE 2017 11:11 AM CDT [facility] STOOL SPECIMEN / Unknown 06/09/2017 7:37 AM CDT 06/09/2017 7:37 AM CDT us Generic Maggy Moya MD BODY FLUIDS AND STOOLS ORDERABLES Final Result [facility] [address] [place] [address], documented in this encounter Visit Diagnoses Not on filedocumented in this encounter Care Teams Bait Man Relationship Specialty Start Date End Date Neri Martínez MD [address] [place] [address] PCP - General FAMILY PRACTICE 04/26/19 documented as of this encounter
--- OUTSIDE RECORDS SUMMARY | 2025-04-01 00:26 | XMS_ITS | Patient Health Record ---
Author Organization 1 OF Farhat jones [facility] Address [address] [facility] [address] [place] [address] Care Team Providers Care Finishing Department Supervisor Name Role Phone Arthurchelsey Kelly Primary Care Provider Unavail able Valeria Bowman Unavailable [phone] Allergies Allergen (clinical drug ingredient) Drug/Non Drug [...] Status Risk Notes Problem Ulcer of left foot, limited to breakdown of skin (L97.521) Active confirmed Problem Quadriplegia (25418729) Quadriplegia (G82.50) Active confirmed Plan Of Treatment No Information Insurance Providers Payer Name Payer Address Payer Phone Subscriber Number Group Number Insured Name Patient Relationship to Insured Coverage Start Date Coverage End Date [facility] [address] [place] [address] [id number] Alexandra Isabel Spouse - patient is the spouse of the insured Medicare [address] [place] [id number] Ge Isabel Self - patient is the insured Medical (General) History Medical History History ICD Code Cancer(basal cell carcinoma on lip), pari draplegia
--- OUTSIDE RECORDS SUMMARY | 2025-04-01 00:26 | XMS_ITS | Clinical Summary ---
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 Gender Identity Not on file Sexual Orientation Not on file Plan of Treatment Health Maintenance Due Date Last Done Comments Hepatitis C Virus (HCV) Screening 1969 TdaP Immunization 1969 Hepatitis B Immunization (1 of 3 - 19+ 3-dose series) 1988 Cologuard 2014 Colonoscopy 2014 Colorectal Cancer Screening 2014 Immunochemical Fecal Occult Blood 2014 Pneumococcal Immunization (5 0+ years) (1 of 1 - PCV) 2019 Zoster Immunization (1 of 2) 2019 SARS-COV-2 Immunization (3 - 2023- season) 2024 09/21/2021, 08/19/2021 Influenza Immunization (#1) 2025 Respiratory Syncytial Virus (RSV) Immunization (Adult) (1 - 1-dose 75+ series) 2044 Human Papillomavirus (HPV) Immunization Aged Out No longer eligible b ased on patient's age to complete this topic Meningococcal Immunization (ACWY) Aged Out No longer eligible b ased on patient's age to complete this topic Rotavirus Immunization Aged Out No lo nger eligible based on patient's age to complete this topic
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
[2025-04-01 08:56] VITALS: BP 80/35; PULSE 79; RESP 16; TEMP 35.8; O2SAT 98
[2025-04-01] MEDS: LACTATED RINGERS 1,000 ML 150 ML IV CONT (09:13)
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
--- NOTE | 2025-04-01 09:59 | S_PTH ---
PATIENT: Ge Isabel LOC: ANITA Espinal#:[id number] AGE/SX: 54/M ROOM: RE04/01/[address]: Ruiz Alba MD : 1970 BED: DIS: 04/01/2025 SPEC #: [id number] RECD: 04/01/25 10:27 STATUS: ANTONI REArmida #: [id number] MADELEINE: 04/01/25 09:[address]: Ruiz Alba DEPT: [facility] Surgical RECD BY: Shell Stone ENTERED: 04/01/25 10:27 SP TYPE: Surgical OTHR DR: Kelly Broussard MD Tissues: A - Colon Polypectomy B - Colon Polypectomy C - Colon Polypectomy Procedures: Hematoxylin and Eosin Stain Gross and Microscopic Level 4
[2025-04-01 10:02] VITALS: BP 89/53; PULSE 72; RESP 18; O2SAT 99
[2025-04-01 10:12] VITALS: BP 91/68; PULSE 75; RESP 18; O2SAT 99
[2025-04-01 10:22] VITALS: BP 99/64; PULSE 72; RESP 20; O2SAT 100
== END 2025-04-01 10:40 | disposition home or self-care (01) ==
PROVIDERS: PCP Family Medicine; Referring Provider Family Medicine; Visit Provider Internal Medicine Gastroenterology
PROC: 0DJD8ZZ Inspection of Lower Intestinal Tract, Via Natural or Artificial Opening Endoscopic (ICD-10-PCS; CPT 45378; principal; 2025-04-01 10:00)
DX: Z12.11 Encounter for screening for malignant neoplasm of colon (principal); K63.89 Other specified diseases of intestine; D12.2 Benign neoplasm of ascending colon; D12.3 Benign neoplasm of transverse colon; D12.0 Benign neoplasm of cecum; N40.0 Benign prostatic hyperplasia without lower urinary tract symptoms; G82.50 Quadriplegia, unspecified; Z79.01 Long term (current) use of anticoagulants; Z98.890 Other specified postprocedural states; Z98.1 Arthrodesis status; Z96.0 Presence of urogenital implants; Z87.891 Personal history of nicotine dependence; Z87.442 Personal history of urinary calculi; Z85.828 Personal history of other malignant neoplasm of skin; Z86.718 Personal history of other venous thrombosis and embolism; Z80.0 Family history of malignant neoplasm of digestive organs
CPT/HCPCS: 45385; 88305; J2704; J7120

== ENCOUNTER 2025-06-05 14:29 | Outpatient (CLI) | payer BC, MEDICARE, SELFPAY ==
--- NOTE | ~2025-06-05 | CT_ITS ---
Ge Isabel EXAMINATION: CT abdomen pelvis wo/w con COMPARISON: Comparison 11/20/2023. HISTORY: gross hematuria TECHNIQUE: Axial images were obtained through the abdomen, pelvis pre and post administration of IV contrast. Oral contrast administered. Coronal reconstruction images were obtained from the axial views. CT scan performed using dose optimization techniques including the following automated exposure control; adjustment of mA and/or kV; use of iterative reconstruction technique. Automatic exposure control was used to reduce radiation dose. Permanent radiation dose record is archived to PACS. FINDINGS: CT abdomen: LUNG BASES: The lung bases are clear. The visualized portions of the heart and pericardium are unremarkable. LIVER: Unremarkable, liver contours intact, no lesions. SPLEEN: Unremarkable. KIDNEYS: Right Kidney: Right kidney mild hydronephrosis with mild hydroureter but no obstructing distal ureteral calculus. Left Kidney: There are multiple calculi in the left kidney with a staghorn calculus in the lower pole measuring 2.3 x 2.2 cm the second largest calculus in the renal pelvis measuring 2.5 x 2.2 cm with mild to moderate left hydronephrosis. Left kidney there is moderate left hydroureter tapering abruptly distally. ADRENAL GLANDS: Unremarkable. PANCREAS: Unremarkable. GALLBLADDER/BILIARY: Cholelithiasis. STOMACH AND ESOPHAGUS: Visualized stomach and esophagus within normal limits. BOWEL/MESENTERY: Moderate fecal content. Appendix is normal. Mesentery normal. No dilated small bowel loops. ADENOPATHY/RETROPERITONEUM: No lymphadenopathy. AORTA/VASCULATURE: Normal caliber aorta. FREE FLUID OR FREE AIR: No free fluid.. CT pelvis: SOLID ORGANS/REPRODUCTIVE: Prostate prominent correlate with PSA. BLADDER: There is thickening of the bladder wall with trabeculation of the bladder wall in several areas. OSSEOUS STRUCTURES: Moderate degenerative changes lumbar spine. OVERLYING SOFT TISSUES: Unremarkable. IMPRESSION: 1. Large left-sided renal calculi with hydronephrosis and hydroureter. There is a short segment of narrowing in the distal left ureter, stricture is not excluded. 2. Mild hydronephrosis and hydroureter on the right side without obstructing distal calculus. Findings may be infectious. Follow-up suggested to assess resolution. 3. Cystitis detailed above. 4. Incidental findings above Reviewed, dictated and finalized at location P. IMPRESSION: 1. Large left-sided renal calculi with hydronephrosis and hydroureter. There is a short segment of narrowing in the distal left ureter, stricture is not exclu ded. 2. Mild hydronephrosis and hydroureter on the right side without obstructing di stal calculus. Findings may be infectious. Follow-up suggested to assess resolu tion. 3. Cystitis detailed above. 4. Incidental findings above
--- OUTSIDE RECORDS SUMMARY | 2025-06-05 18:47 | XMS_ITS | Encounter Summary ---
Author Organization [facility] Address [address] [place] [address] Care Team Providers Care Retail Office Manager Name Role Phone Neri Martínez MD Primary Care Provider [phone] Encounter Details Date Type Department Care Team (Late st Contact Info) Description 06/09/2017 Abstract [facility] CONVERSION [address] [place], [place] [id number] , Generic Conversion, Social History Tobacco Use [...] CDT 06/09/2017 7:37 AM CDT us Generic Mgagy Moya MD BODY FLUIDS AND STOOLS ORDERABLES Final Result [facility] [address] [place] [address], documented in this encounter Visit Diagnoses Not on filedocumented in this encounter Care Teams Retail Office Manager Relationship Specialty Start Date End Date Neri Martínez MD [address] [place] [address] PCP - General FAMILY PRACTICE 04/26/19 documented as of this encounter
--- OUTSIDE RECORDS SUMMARY | 2025-06-05 18:47 | XMS_ITS | Clinical Summary ---
Author Organization [facility] Address [address] [place] [id number] Care Team Providers Care Seafood Preparer Name Role Phone Neri Martínez MD Primary Care Provider [phone] Social History Tobacco Use Types Packs/Day Years [...] COVID-19 Vaccine ( - 2023-2 5 season) 2025 Influenza Adult (#1) 2025 Meningococcal B Vaccine Aged Out No l onger eligible based on patient's age to complete this topic Meningococcal Vaccine Aged Out No andrey mauricio eligible based on patient's age to complete this topic RSV Immunizations Under 20 Months Aged Out No longer eligible based on patient's age to complete this topic Care Teams Seafood Preparer Relationship Specialty Start Date End Date Neri Martínez MD [address] [place] [address] PCP - General FAMILY PRACTICE 04/26/19
--- OUTSIDE RECORDS SUMMARY | 2025-06-05 18:48 | XMS_ITS | Clinical Summary ---
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
--- OUTSIDE RECORDS SUMMARY | 2025-06-05 18:48 | XMS_ITS | Patient Health Record ---
Author Organization [facility] Address [address] [address] [place] [address] Care Team Providers Care Osteology Teacher Name Role Phone Kelly Broussard Primary Care Provider Unavail able Valeria Bowman Unavailable [phone] Allergies Allergen (clinical drug ingredient) Drug/Non Drug Allergy documented on EMR Reaction Allergy Type Onset Date Status Latex Latex Unknown Allergy Active Reason For Referral No Information Medications Medication SIG (Take, Route, Frequency, Duration) Notes Start Date End Date Status diazePAM Active Baclofen Active Aspirin 81 Active Tamsulosin HCl Activ e Medihoney Wound/Burn Dressing - Gel Apply to wound bed daily Topical once daily; Duration: 30 days Active Vitamin C Active Stool Softener Activ e Social History Tobacco Use: Social History Observation Description Date Details (start date - stop date) Never Smoker NA - NA Social History Tobacco Use: Social Info Question Answer Notes Tobacco Use/Smoking Are you a nonsmoker Additional Details Category Social Info Options Details Miscellaneous: Exercise: Sedentary Occupation: Disabled Living with: spouse Drugs/Alcohol: Alcohol use: Yes: Social alcoho l use Recreational drugs Denies All Problems Problem Type SNOMED Code ICD Code Onset Dates Problem Status W/U Status Risk Notes Problem Ulcer of left foot (disorder) (321676740) Ulcer of left foot, limited to breakdown of skin (L97.521) Active confirmed Problem Quadriplegia (92452451) Quadriplegia (G82.50) Active confirmed Plan Of Treatment No Information Insurance Providers Payer Name Payer Address Payer Phone Subscriber Number Group Number Insured Name Patient Relationship to Insured Coverage Start Date Coverage End Date [facility] [address] [place] [address] [id number] Alexandra Isabel Spouse - patient is the spouse of the insured Medicare 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
== END 2025-06-05 14:30 | disposition home or self-care (01) ==
PROVIDERS: PCP Family Medicine; Visit Provider Physician Assistant
DX: N20.0 Calculus of kidney (principal); N13.30 Unspecified hydronephrosis; N13.4 Hydroureter; N30.80 Other cystitis without hematuria
CPT/HCPCS: 74178; Q9967